=== PATIENT | female | born 1945 | race Caucasian/White ===

== ENCOUNTER → 2016-04-05 | Day surgery (SDC) | payer MEDICARE, BC ==
--- NOTE | 2016-03-31 17:28 | HP ---
PREOPERATIVE HISTORY AND PHYSICAL EXAM: DATE OF SURGERY/ADMISSION: 04/05/16 [facility] DATE OF OFFICE VISIT/ENCOUNTER: 03/31/16 ATTENDING SURGEON: Melany Beavers MD PROCEDURE: Left long finger excision mass, right index finger PIP joint cortisone injections. CHIEF COMPLAINT: Mass, left long finger, right index finger PIP joint pain. HISTORY OF PRESENT ILLNESS: This is a 70-year-old female complaining of a painful mass at the base of her long finger on the left hand. It has been present for approximately 1 year. 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 She reports that it fluctuates in size, but has been persistent in existence. She also has had pain at the PIP joint of her right index finger for a couple of years now and x-rays have showed arthritis at the joint. She has consented to proceed with surgical intervention on the left long finger for excision of the mass and also for a cortisone injection in the right index finger PIP joint. PAST MEDICAL HISTORY: 1. Heart murmur. 2. History of DVT approximately 40 years ago. 3. Hypertension. 4. Asthma. 5. GERD. 6. Diabetes. 7. Depression. 8. History of shingles. PAST SURGICAL HISTORY: 1. Left index finger cyst excision. 2. Bilateral carpal tunnel releases. 3. Left thumb surgery. 4. Trigger finger surgeries. 5. Partial hysterectomy. CURRENT MEDICATIONS: 1. Aspirin 81 mg daily. 2. Atorvastatin calcium 20 mg daily. 3. Flonase 50 mcg p.r.n. 4. Glimepiride 4 mg 1 tab in the morning, half tab at noon, 1 tab in the evening. 5. Januvia 100 mg daily. 6. Klonopin 1 mg one-half to one p.o. b.i.d. p.r.n. 7. Metformin 1000 mg 1 tab b.i.d. 8. Motrin 600 mg 1 p.o. q.8 hours p.r.n. pain. 9. Multivitamin 1 daily. 10. Prilosec 10 mg daily. 11. Tolterodine tartrate 2 mg 1 tab b.i.d. ALLERGIES: 1. ADHESIVES. 2. CELEXA. 3. CODEINE. 4. ERYTHROMYCIN. 5. IVP CONTRAST. 6. LATEX. 7. PERCOCET. 8. PERCODAN. 9. TETRACYCLINE. FAMILY MEDICAL HISTORY: Diabetes, cardiac disease, cancer, and osteoarthritis. SOCIAL HISTORY: The patient is retired. She denies tobacco use, recreational drug use, or alcohol use. REVIEW OF SYSTEMS: General: Negative for fevers, chills, or night sweats. No known anesthesia problems. HEENT: Negative for headache, lightheadedness, or syncopal episodes. Integumentary: Negative for abrasions, lesions, or open wounds. Cardiothoracic: Positive for hypertension. Negative for chest pain, palpitations, or edema. Pulmonary: Positive for asthma. Negative for chronic cough or COPD. GI: Positive for GERD. Negative for nausea, vomiting, diarrhea , or constipation. : Positive for history of kidney stones. Negative for nocturia, urinary frequency, urgency, or history of UTIs. Musculoskeletal: Positive for current complaint. Negative for chronic or intermittent back pain or history of fractures. Neurological: Positive for depression. Negative for paresthesias, numbness, history of seizures, stroke, or epilepsy. Endocrine: Positive for diabetes. Negative for thyroid issues. Hematologic: Positive for history of DVT. Negative for easy bruising, anemia, or excessive bleeding. Infectious Disease: Negative for history of MRSA, hepatitis C, or HIV. PHYSICAL EXAMINATION GENERAL: Well-developed, well-nourished 70-year-old female in no acute distress. VITAL SIGNS: Height 5 feet 4 inches, weight 217 pounds, pulse rate 64, blood pressure 122/74. HEENT: Normocephalic, atraumatic. Pupils are equal, round, and reactive to light and accommodation. Extraocular movements are intact. NECK: Supple. No palpable lymph nodes. Throat is clear. PULMONARY: Lungs are clear to auscultation bilaterally. No wheezes, rales, or rhonchi. CARDIOTHORACIC: Regular rate and rhythm. S1, S2. Murmur detected. No rubs or gallops. No edema. ABDOMEN: Positive bowel sounds. Soft, nontender. NEUROLOGICAL: Alert and oriented x3. Cranial nerves II through XII are intact. Sensation is intact to light touch. MUSCULOSKELETAL: On exam of the left hand, there is a small cystic mass at the MP flexion crease of her left middle finger which is painful. Negative Tinel's sign over the mass. She has tenderness to palpation at the PIP joint of the right index finger and difficulty achieving full flexion secondary to arthritis. Intact neurovascular function in both hands. IMAGING STUDIES: X-rays of the left hand showed diffuse degenerative changes throughout the joints mostly involving PIP joints and DIP joints. IMPRESSION: Left middle finger ganglion cyst, right index finger PIP arthritis. PLAN: The patient is scheduled to undergo a left long finger excision mass and a right index finger PIP joint cortisone injection with Dr. Beavers on 04/05/16. She will return to the office 10 to 14 days postop for followup and suture removal. A prescription for Ultracet was e-scribed to the patient's pharmacy for postoperative pain management. DOLORES NASH [id number]/[facility] #: [id number] MTDPerez
[~2016-04-05] MED LIST: Buffered Lidocaine 1% SYR 3ML* 3 ML/SYR SYRINGE INTRADERM ONE; Bupivacaine 0.5% SDV PF* 30 ML VIAL ONE; Lidocaine 1% INJ* 10 MG/ML 30 ML SDV ONE; Midazolam* 1 MG/ML 2 ML VIAL (2 MG) ONE; Propofol* 10 MG/ML 20 ML BTL IV PUSH ONE; fentaNYL* 50 MCG/ML 2 ML VIAL (100 MCG VIAL) ONE; methylPREDNISolone ACETATE 40* 40 MG/ML 1 ML VIAL ONE
[2016-04-05 09:48] VITALS: BP 137/68
--- NOTE | 2016-04-05 15:31 | OP ---
DATE OF OPERATION: 04/05/16 [facility] DATE OF : 47 SURGEON: Melany Beavers MD ORGANIZATIONAL DEVELOPMENT CONSULTANT: DOLORES Davis ANESTHESIA: Local MAC. PRE-OP DIAGNOSES: Left long finger mass and right index finger PIP arthritis. POST-OP DIAGNOSES: Left long finger mass and right index finger PIP arthritis. OPERATIVE PROCEDURE: Right index finger PIP injection and left long finger mass excision. ESTIMATED BLOOD LOSS: Zero. TOURNIQUET TIME: About 10 minutes. INDICATIONS FOR PROCEDURE: Katherine is a 70-year-old woman who has a painful mass on the MP flexion crease of her left middle finger. She also has PIP arthritis of right index finger. She presents for PIP injection of the right index finger and mass removal from the left middle finger. DESCRIPTION OF PROCEDURE: The patient was brought to the operating room, was given a sedation anesthetic and local infiltration of 10 cc of 1% plain lidocaine in the palm of her left hand. She was then injection of 40 mg of Depo -Medrol, 1 cc of 1% plain lidocaine near the PIP of the right index finger. Skin of the her left hand and forearm were prepped and draped in usual sterile fashion. The hand and forearm were exsanguinated and tourniquet elevated to 250 mmHg. A transverse incision was made at the MP flexion crease of the left middle finger. We dissected bluntly through the subcutaneous tissue down to the flexor tendon sheath. There was a ganglion cyst emanating from the flexor tendon sheath. It was removed with the small portion of the sheath and sent for pathology. The wound was irrigated and skin were reapproximated with 4-0 nylon suture. The wound was dressed with Xeroform, 4x4, Webril, and an ANNALEE wrap. The patient tolerated the procedure well and was brought to the recovery room in good condition. [id number]/[facility] #: [id number] MTDPerez
== END | disposition home or self-care (01) ==
LOC: OREAST 08:02
PROVIDERS: ATTEND Orthopaedic Surgery
DX: M67.442 Ganglion, left hand (principal); E11.9 Type 2 diabetes mellitus without complications; I10 Essential (primary) hypertension; R01.1 Cardiac murmur, unspecified; M19.90 Unspecified osteoarthritis, unspecified site
CPT/HCPCS: 88304; J1030; J2250; J2704; J3010

== ENCOUNTER 2016-04-10 10:57 | Emergency (ER) | payer MEDICARE, BC ==
[2016-04-10 11:31] VITALS: BP 155/86
--- NOTE | 2016-04-10 12:23 | UC ---
Skin Complaint HPI - HPI Summary HPI Summary: pt reports that she had a cortisone injection on 04/05/16, for DJD, reports waking alen morning with redness, swelling, pruritic skin at 2nd right finger PIP joint injection site. Erythema, swelling, tenderness, and small "blisters" in dorsal side of hand at 2nd right finger PIP joint that has spread to wrist and hand.Pt had ganglion cyst removed 1 week ago on left hand, base of third finger. Has history of DJD - History of Current Complaint Chief Complaint: UCSkin Time Seen by Provider: 04/10/16 12:04 Stated Complaint: RASH AND HAND PAIN Hx Obtained From: Patient ?: No Onset/Duration: Gradual Onset, Lasting Days Skin Exposure Onset/Duration: Days Ago Timing: Constant Onset Severity: Mild Current Severity: Moderate Location: Discrete, Hand (Left) Character: Swelling, Pruritus, Pain, Redness, Painful Aggravating: Touch Alleviating: Other - has not tried anything Associated Signs & Symptoms: Positive: Tenderness - Allergy/Home Medications Allergies/Adverse Reactions: Allergies Allergy/AdvReac Type Severity Reaction Status Date / Time Erythromycin Allergy Severe STOMACH Verified 03/30/16 10:45 ACHE Fluoxetine Allergy Severe HEART Verified 03/30/16 10:45 PALPITATIONS, AGITATION Tetracycline Allergy Severe YEAST Verified 03/30/16 10:45 INFECTION Cortisone Allergy Intermediate Redness, Verified 04/10/16 11:24 swelling Tramadol Allergy Unknown Unknown Verified 04/10/16 11:24 Reaction Details Aspirin [From Percodan] Allergy Headache Verified 03/30/16 10:43 Citalopram [From Celexa] Allergy Palpitation Verified 03/30/16 10:43 s Codeine Allergy Nausea And Verified 03/30/16 10:43 Vomiting Latex Allergy Rash And Verified 03/30/16 10:43 Itching Oxycodone [From Percocet] Allergy Headache Verified 03/30/16 10:43 UNADUR Allergy Severe SEVERE Uncoded 03/30/16 10:45 HEART PALPITATIONS CONTRAST DYE Allergy Hives Uncoded 03/30/16 10:43 Review of Systems Constitutional: Negative Skin: Rash Eyes: Negative ENT: Negative Respiratory: Negative Cardiovascular: Negative Gastrointestinal: Negative Genitourinary: Negative Motor: Decreased ROM - right 2nd finger Neurovascular: Negative Musculoskeletal: Arthralgia, Decreased ROM - right 2nd finger, Edema - right 2nd finger and hand, Myalgia, Other: - left hnad with post bandage from ganglion cyst removal intact. Neurological: Negative, Weakness Psychological: Negative All Other Systems Reviewed And Are Negative: Yes PMH/Surg Hx/FS Hx/Imm Hx Endocrine History Of: Reports: Diabetes - TYPE 2 Cardiovascular History Of: Reports: Hypertension - CONTROL WITH MEDS Denies: Pacemaker/ICD Respiratory History Of: Reports: Asthma - HX OF WITH A COLD, Bronchitis - WITH A COLD GI/ History Of: Reports: Kidney Stones - HX OF - ? PASSED Psychological History Of: Reports: Anxiety - CONTROL WITH MEDICATION, Depression - Surgical History Surgical History: Yes Surgery Procedure, Year, and Place: 1980 PARTIAL HYSTERECTOMY, [facility]. 1999 BILATERAL CARPAL TUNNEL RELEASE, [facility]. 2003 LEFT INDEX GANGLION TENDON SHEATH EXCISION, [facility]. 2010 LEFT THUMB SURGERY, [facility]. Left third finger ganglion cyst - Family History Known Family History: Positive: Other - denies FMH of DJD - Social History Alcohol Use: None Substance Use Type: None Smoking Status (MU): Never Smoked Tobacco Have You Smoked in the Last Year: No Physical Exam Triage Information Reviewed: Yes Appearance: Well-Appearing Vital Signs: Initial Vital Signs Temp 97.8 F 04/10/16 11:24 Pulse 82 04/10/16 11:24 Resp 16 04/10/16 11:24 BP 155/86 04/10/16 11:24 Pulse Ox 99 04/10/16 11:24 Vital Signs Reviewed: Yes ENT Exam: Normal Neck exam: Normal Respiratory Exam: Normal Cardiovascular Exam: Normal Musculoskeletal: Positive: Strength Limited @ - right hand, left hand s/p ganglion cyst removal with post op bandages intact., ROM Limited @, Edema @ - right hand and 2nd finger Neurological Exam: Normal Psychological Exam: Normal Skin Exam: Other - right dorsal side 2nd hand/finger, erythema swelling tenderness Course/Dx - Course Course Of Treatment: pt was advised to follwo up with Dr. Beavers and to take OTC antihistamine - Differential Diagnoses - Skin Complaint Differential Diagnoses: Cellulitis, Local Allergic Reaction - Diagnoses Provider Diagnoses: cellulitis. localized allergic reaction Discharge - Discharge Plan Condition: Stable Disposition: HOME Prescriptions: Cephalexin CAP* [Keflex 500 CAP*] 500 mg PO Q12H #10 cap Patient Education Materials: Cellulitis (ED), Dermatitis (ED) Referrals: Christopher Lane MD [Primary Care Provider] - Additional Instructions: Please use Benadryl OTC Q6 hours PRN for pruritis
== END 2016-04-10 12:31 | disposition home or self-care (01) ==
LOC: UCEAST 10:57
DX: L03.113 Cellulitis of right upper limb (principal); I10 Essential (primary) hypertension; F41.9 Anxiety disorder, unspecified; Z88.1 Allergy status to other antibiotic agents; Z88.5 Allergy status to narcotic agent; Z88.6 Allergy status to analgesic agent; Z88.8 Allergy status to other drugs, medicaments and biological substances; Z91.041 Radiographic dye allergy status
CPT/HCPCS: 99202; G0463

== ENCOUNTER → 2016-04-19 | Day surgery (SDC) | payer MEDICARE, BC ==
--- NOTE | 2016-04-15 07:31 | HP ---
PREOPERATIVE HISTORY AND PHYSICAL: DATE OF ADMISSION/SURGERY: 04/26/16 DATE OF OFFICE VISIT/ENCOUNTER: 04/13/16 ATTENDING SURGEON: Melany Beavers MD PROCEDURE: Right thumb carpometacarpal arthroplasty. CHIEF COMPLAINT: Base of right thumb pain. HISTORY OF PRESENT ILLNESS: This is a 70-year-old female who complains of pain at the base of her r ight thumb for over a year now, she feels like it is progressively getting worse. 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 She has had x-rays of the thumb which sh ow significant degenerative changes of the carpometacarpal joint. She is interested in pursuing kyleigh gical intervention for this problem at this time. She has undergone a left thumb CMC arthroplasty a nd did well with that. She presents today for a right thumb CMC arthroplasty. PAST MEDICAL HISTORY: 1. Heart murmur. 2. History of DVT approximately 40 years ago. 3. Hypertension. 4. Asthma. 5. GERD. 6. Diabetes. 7. Depression. 8. History of shingles. PAST SURGICAL HISTORY: 1. Excision, mass, left long finger. 2. Excision, mass, left index finger. 3. Bilateral carpal tunnel releases. 4. Left thumb surgery. 5. Trigger finger release surgeries. 6. Partial hysterectomy. CURRENT MEDICATIONS: 1. Aspirin 81 mg daily. 2. Atorvastatin calcium 20 mg daily. 3. Flonase 50 mcg p.r.n. 4. Glimepiride 4 mg 1 tab in the morning, half tab at noon, 1 tab in the evening. 5. Januvia 100 mg daily. 6. Klonopin 1 mg one-half to one p.o. b.i.d. p.r.n. 7. Metformin 1000 mg 1 tab b.i.d. 8. Motrin 600 mg 1 tab q.8 hours p.r.n. pain. 9. Multivitamin daily. 10. Prilosec 10 mg daily. 11. Tolterodine tartrate 2 mg 1 tab b.i.d. ALLERGIES: ADHESIVES, CELEXA, CODEINE, ERYTHROMYCIN, IVP CONTRAST, LATEX, PERCOCET, PERCODAN, TETRA CYCLINE. FAMILY MEDICAL HISTORY: Diabetes, cardiac disease, cancer, and osteoarthritis. SOCIAL HISTORY: The patient is retired. She denies tobacco use. She denies recreational drug use. She denies alcohol use. REVIEW OF SYSTEMS: General: Negative for fevers, chills, or night sweats. No known anesthesia pro blems. HEENT: Negative for headache, lightheadedness, or syncopal episodes. Integumentary: Negat drake for abrasions, lesions, or open wounds. Cardiothoracic: Positive for hypertension. Negative f or chest pain, palpitations, or edema. Pulmonary: Positive for asthma. Negative for chronic cough or COPD. GI: Positive for GERD. Negative for nausea, vomiting, diarrhea, or constipation. : Positive for kidney stones. Negative for nocturia, urinary frequency, urgency, or history of UTIs. Musculoskeletal: Positive for current complaint. Negative for chronic or intermittent back pain o r history of fractures. Neurological: Positive for depression. Negative for paresthesias, numbness , history of seizures, stroke, or epilepsy. Endocrine: Positive for diabetes. Negative for thyroid issues. Hematologic: Positive for history of DVT. Negative for easy bruising, anemia, or excessi ve bleeding. Infectious Disease: Negative for history of MRSA, hepatitis C, or HIV. PHYSICAL EXAMINATION GENERAL: Well-developed, well-nourished, 70-year-old female in no acute distress. VITAL SIGNS: Height 5 feet 4 inches, weight 217 pounds, pulse rate 64, blood pressure 122/74. HEENT: Normocephalic, atraumatic. Pupils are equal, round, and reactive to light and accommodation . Extraocular movements are intact. NECK: Supple. No palpable lymph nodes. Throat is clear. PULMONARY: Lungs are clear to auscultation bilaterally. No wheezes, rales, or rhonchi. CARDIOTHORACIC: Regular rate and rhythm. S1, S2. Slight murmur detected. No rubs or gallops. No edema. ABDOMEN: Positive bowel sounds. Soft, nontender. NEUROLOGICAL: Alert and oriented x3. Cranial nerves II through XII are intact. Sensation is intact to light touch. MUSCULOSKELETAL: On exam of the right hand and thumb, there is tenderness to palpation at the carpo metacarpal joint. The patient has increased pain with full opposition and abduction. She has a pos itive grind test. Neurovascular function is intact. DIAGNOSTIC STUDIES: Imaging studies: X-rays of the right thumb show severe degenerative arthritis of the CMC joint. PLAN: The patient is scheduled to undergo a right thumb CMC arthroplasty with Dr. Beavers on 04/26/16 . She will return to the office 10 to 14 days postop for followup and suture removal. Mead will b e prescribed to the patient for postoperative pain management and that will be sent to her pharmacy the day of surgery. DOLORES NASH [id number]/[facility] #: [id number]
[~2016-04-19] MED LIST changes: +Clindamycin 900 MG IVPREMIX(* 900 MG/50 ML SDV IV ONE; +Lidocaine 0.5%* 50 ML SDV ONE; -Lidocaine 1% INJ* 10 MG/ML 30 ML SDV ONE; +Metoclopramide IV* 5 MG/ML 2 ML VIAL IV SLOW PU ONE; +Metoclopramide IV* 5 MG/ML 2 ML VIAL ONE; -Propofol* 10 MG/ML 20 ML BTL IV PUSH ONE; +Sodium Citrate/Citric Acid* 15 ML UDC ONE; +Sodium Citrate/Citric Acid* 15 ML UDC PO ONE; -methylPREDNISolone ACETATE 40* 40 MG/ML 1 ML VIAL ONE
[2016-04-19 13:30] VITALS: BP 131/79
--- NOTE | 2016-04-20 01:31 | OP ---
DATE OF OPERATION: 04/19/16 [facility] DATE OF : 47 SURGEON: Melany Beavers MD. LABOR RELATIONS REPRESENTATIVE: DOLORES Davis. ANESTHESIOLOGIST: Melvin Angeles DO ANESTHESIA: IV regional. PRE-OP DIAGNOSIS: Right thumb carpal metacarpal arthritis. POST-OP DIAGNOSES: Right thumb carpal metacarpal arthritis. OPERATIVE PROCEDURE: Right thumb carpal metacarpal arthroplasty. ESTIMATED BLOOD LOSS: Zero. TOURNIQUET TIME: About 35 minutes. INDICATIONS FOR PROCEDURE: Katherine is a 70-year-old woman with pain at the base of her right thumb. She has failed conservative treatment and presents for CMC arthroplasty on the right. DESCRIPTION OF PROCEDURE: The patient was brought to the operating room, was given a sedation anesthetic and an IV regional anesthetic with tourniquet around her right upper arm. The skin of her right upper extremity was prepped and draped in the usual sterile fashion. An S-shaped incision was made centered at the thumb CMC joint on the right. We dissected bluntly through the subcutaneous tissue. Branches of the radial sensory nerves were located and then retracted by the surgical processor, Gifty Crawford. The radial artery was carefully dissected out and also retracted, as were the first compartment extensor tendons. A distally based U-shaped flap was then created off the CMC joint capsule and subperiosteally dissected off of the trapezium. The trapezium was then removed in its entirety after sectioning with an osteotome. The wound was copiously irrigated with saline. The CMC joint capsule was secured to the FCR tendon in the base of the wound with a 4-0 nylon suture. This produced nice abduction of the metacarpal. The remainder of the CMC joint capsule was closed with 4-0 nylon suture and the skin edges were reapproximated with 4-0 nylon suture. The wound was dressed with Xeroform, 4x4, Webril and a thumb spica splint with the metacarpal abducted. The patient tolerated the procedure well and was brought to the recovery room in good condition. [id number]/[facility] #: [id number] MTDD
== END | disposition home or self-care (01) ==
LOC: OREAST 10:13
PROVIDERS: ATTEND Orthopaedic Surgery
DX: M18.11 Unilateral primary osteoarthritis of first carpometacarpal joint, right hand (principal); I10 Essential (primary) hypertension; J45.909 Unspecified asthma, uncomplicated; E11.9 Type 2 diabetes mellitus without complications
CPT/HCPCS: 88304; 88311; A9270-GY; J2250; J2765; J3010

== ENCOUNTER 2017-01-23 10:14 | Observation (INO) | payer MEDICARE, BC ==
[2017-01-23] MEDS ORDERED: NS 0.9% 1000 ML* 1,000 ML IV ONE (11:34)
[2017-01-23] MEDS ORDERED: Ondansetron INJ* 2 MG/ML VIAL IV ONE (11:34)
[2017-01-23] MEDS ORDERED: Morphine INJ* 4 MG/ML 1 ML CARPUJECT IV ONE (11:34)
--- NOTE | 2017-01-23 12:07 | RAD ---
INDICATION: Upper abdominal pain. COMPARISON: Comparison is made with a prior chest x-ray study from June 17, 2004. TECHNIQUE: Dual-energy PA and lateral views of the chest were obtained. FINDINGS: The heart is within normal limits in size. Mediastinal and hilar contours appear within normal limits. The lungs are clear. No pleural effusion is present. No free intraperitoneal air is seen. IMPRESSION: NO EVIDENCE FOR ACTIVE CARDIOPULMONARY DISEASE.
[2017-01-23 12:36] LABS: Hematocrit 33 % (35-47); Hemoglobin 11.2 g/dl (12.0-16.0); Mean Corpuscular HGB Conc 34 g/dl (31-36); Mean Corpuscular Hemoglobin 29 pg (27-31); Mean Corpuscular Volume 86 fL (80-97); Mean Platelet Volume 8 um3 (7.4-10.4); Red Blood Count 3.88 10^6/ul (4.0-5.4); Red Cell Distribution Width 16 % (10.5-15); White Blood Count 5.9 10^3/ul (3.5-10.8)
[2017-01-23 12:45] LABS: BUN/Creatinine Ratio 19.8 (8-20); C Reactive Protein 2.1 mg/L (< 5.00); Calcium 8.6 mg/dL (8.6-10.3); EGFR African American 73.9 (>60); EGFR Non-African American 57.5 (>60); Globulin 3.7 g/dL (2-4); Potassium 4.2 mmol/L (3.5-5.0); Total Bilirubin 0.6 mg/dL (0.2-1.0); Total Protein 7.7 g/dL (6.4-8.9)
[2017-01-23 12:47] LABS: Troponin I 0.04 ng/mL (<0.04)
--- NOTE | 2017-01-23 12:49 | RAD ---
CLINICAL HISTORY: Right upper quadrant pain. Relevant surgical history includes "partial hysterectomy". COMPARISON: None TECHNIQUE: Noncontrast CT examination of the abdomen and pelvis from the lung bases through the initial tuberosities. FINDINGS: VISUALIZED LUNG BASES: The visualized lung bases are grossly clear. There is no pleural effusion. ABDOMEN AND PELVIS: Evaluation of the solid organs and vasculature is limited without intravenous contrast. The liver, spleen, pancreas and adrenal glands are grossly normal in appearance. The gallbladder is normal. The kidneys are normal in appearance without focal mass, calcification or signs of hydronephrosis. Evaluation of the gastrointestinal tract is limited without oral contrast. The small and large bowel are not distended. The normal and diminutive appendix is likely identified at the right lower quadrant (coronal image 44). There is no gross retroperitoneal or mesenteric lymphadenopathy. Despite a reported "partial hysterectomy and "the uterus appears to be present. The mildly calcified abdominal aorta and iliac arteries are normal in course and diameter. Degenerative changes include multilevel loss of intervertebral disc height involving the lower thoracic and lumbar spine.There are no sinister bone lesions. IMPRESSION: 1. No definite inflammatory change or signs of obstruction involving the gastrointestinal tract. 2. Likely normal appendix. 3. No renal calculi or signs of urinary obstruction. 4. Chronic and degenerative changes described in the body the report.
--- NOTE | 2017-01-23 15:33 | ED ---
Markos Voss Nilda, scribed for Nikolas Gooden MD on 01/23/17 at 1134 . Abdominal Pain/Female - HPI Summary HPI Summary: This patient is a 71 year old F presenting to [facility] accompanied by with a chief complaint of constant RUQ pain (pressure) that has been progressively worsening for the past 3 weeks. She states it feels like it wants to fall out. PCP recommended patient visit the ED. The patient rates the pain 8/10 in severity. Symptoms aggravated by food and sitting. Symptoms alleviated by supporting abdomen. Patient reports RUQ swelling, but denies dyspnea, N/V/D, melena, and abdominal distention. No PSHx for GI. - History of Current Complaint Chief Complaint: EDAbdPain Stated Complaint: ABD PAIN Time Seen by Provider: 01/23/17 11:18 Hx Obtained From: Patient Onset/Duration: Gradual Onset, Lasting Weeks - 3 weeks Timing: Constant Severity Currently: Severe Pain Intensity: 8 Pain Scale Used: 0-10 Numeric Location: Discrete At: RUQ Radiates: No Character: Other: - pressure Aggravating Factor(s): Food, Other: - bending and sitting Alleviating Factor(s): Other: - supporting abdomen Associated Signs and Symptoms: Positive: Other: - RUQ swelling. Patient denies dyspnea, N/V/D, melena, and abdominal distention. Allergies/Adverse Reactions: Allergies Allergy/AdvReac Type Severity Reaction Status Date / Time Citalopram [From Celexa] Allergy Severe Palpitation Verified 01/23/17 10:49 s Codeine Allergy Severe Nausea And Verified 01/23/17 10:49 Vomiting Erythromycin Allergy Severe STOMACH Verified 01/23/17 10:49 ACHE Fluoxetine Allergy Severe HEART Verified 01/23/17 10:49 PALPITATIONS, AGITATION Latex Allergy Severe Rash And Verified 01/23/17 10:49 Itching Tetracycline Allergy Severe YEAST Verified 01/23/17 10:49 INFECTION Cortisone Allergy Intermediate Redness, Verified 01/23/17 10:49 swelling Tramadol Allergy Unknown Unknown Verified 01/23/17 10:49 Reaction Details Aspirin [From Percodan] Allergy Headache Verified 01/23/17 10:49 Methylprednisolone Allergy Rash And Verified 01/23/17 10:49 [From Depo-Medrol] Itching Oxycodone [From Percocet] AdvReac Intermediate Headache Verified 01/23/17 10:49 CONTRAST DYE Allergy Severe Hives Uncoded 01/23/17 10:49 Trulicity Allergy Severe Nausea And Uncoded 01/23/17 10:49 Vomiting UNADUR Allergy Severe SEVERE Uncoded 01/23/17 10:49 HEART PALPITATIONS Home Medications: Home Medications Albuterol Sulfate [Proventil Hfa] 2 puff INH QID PRN 01/23/17 [History Confirmed 01/23/17] Aspirin EC Low Dose* [Ecotrin EC Low Dose 81 MG*] 81 mg PO BEDTIME 01/23/17 [ History Confirmed 01/23/17] Insulin GLARGINE(*) [Lantus(*)] 0 - 65 units SUBCUT QPM 01/23/17 [History Confirmed 01/23/17] Lisinopril TAB* [Prinivil TAB*] 5 mg PO DAILY 01/23/17 [History Confirmed ] Omeprazole CAP* [Prilosec CAP* 20 MG] 10 mg PO QAM 01/23/17 [History Confirmed 01/23/17] Tolterodine (NF) [Detrol (NF)] 2 mg PO BID 01/23/17 [History Confirmed 01/23/17] metFORMIN* [Glucophage 1000 MG TAB *] 1,000 mg PO BID 01/23/17 [History Confirmed 01/23/17] PMH/Surg Hx/FS Hx/Imm Hx Endocrine/Hematology History: Reports: Hx Diabetes - TYPE 2, Hx Anemia - 2005 - 3 UNITS OF BLOOD, RELATED TO MOTRIN INTAKE Cardiovascular History: Reports: Hx Hypertension - CONTROL WITH MEDS, Other Cardiovascular Problems/Disorders - Heart Murmur Denies: Hx Pacemaker/ICD Respiratory History: Reports: Hx Asthma - HX OF WITH A COLD GI History: Reports: Hx Gastroesophageal Reflux Disease - CONTROL WITH MEDS History: Reports: Hx Kidney Stones - HX OF - ? PASSED Musculoskeletal History: Reports: Hx Arthritis - BILATERAL HANDS,, Hx Bursitis - RIGHT ELBOW, Hx Tendonitis - RIGHT shoulder and ELBOW Sensory History: Reports: Hx Cataracts - BILATERAL, Hx Contacts or Glasses - GLASSES Denies: Hx Hearing Aid Opthamlomology History: Reports: Hx Cataracts - BILATERAL, Hx Contacts or Glasses - GLASSES Psychiatric History: Reports: Hx Anxiety - CONTROL WITH MEDICATION, Hx Depression, Hx Panic Disorder - ORDERED MEDS - Surgical History Surgery Procedure, Year, and Place: 1981 PARTIAL HYSTERECTOMY, [facility]. 2000 BILATERAL CARPAL TUNNEL RELEASE, [facility]. 2004 LEFT INDEX GANGLION TENDON SHEATH EXCISION, [facility]. 2010 LEFT THUMB SURGERY, [facility]. Left third finger ganglion cyst 2017 Hx Anesthesia Reactions: No Infectious Disease History: No Infectious Disease History: Denies: Traveled Outside the [place] in Last 30 Days - Family History Known Family History: Positive: Hypertension, Diabetes, Other - Cancer; denies FMH of DJD - Social History Occupation: Retired Lives: With Family Alcohol Use: None Substance Use Type: Reports: None Smoking Status (MU): Never Smoked Tobacco Have You Smoked in the Last Year: No Review of Systems Positive: Other - negative dyspnea Positive: Abdominal Pain - RUQ pressure, Other - RUQ swelling; negative melena, abd distention. Negative: Vomiting, Diarrhea, Nausea All Other Systems Reviewed And Are Negative: Yes Physical Exam Triage Information Reviewed: Yes Vital Signs On Initial Exam: Initial Vitals Temp Pulse Resp BP Pulse Ox 98.2 F 88 20 130/68 97 01/23/17 10:22 01/23/17 10:22 01/23/17 10:22 01/23/17 10:22 01/23/17 10:22 Vital Signs Reviewed: Yes Appearance: Positive: Well-Appearing, No Pain Distress Skin: Positive: Skin Color Reflects Adequate Perfusion Head/Face: Positive: Normal Head/Face Inspection Eyes: Positive: EOMI ENT: Positive: Normal ENT inspection Respiratory/Lung Sounds: Positive: Clear to Auscultation, Breath Sounds Present Cardiovascular: Positive: RRR Abdomen Description: Positive: Other: - right upper abdomen is distended compare to the left side. she has some tenderness. Musculoskeletal: Positive: Strength/ROM Intact Neurological: Positive: Sensory/Motor Intact, Alert, Oriented to Person Place, Time, CN Intact II-III Psychiatric: Positive: Normal - Tolu Coma Scale Best Eye Response: 4 - Spontaneous Best Motor Response: 6 - Obeys Commands Best Verbal Response: 5 - Oriented Coma Scale Total: 15 Diagnostics - Vital Signs Vital Signs Temp Pulse Resp BP Pulse Ox 01/23/17 10:34 98 96 01/23/17 10:33 109/60 01/23/17 10:22 98.2 F 88 20 130/68 97 - Laboratory Result Diagrams: 01/23/17 12:10 01/23/17 12:10 Lab Statement: Any lab studies that have been ordered have been reviewed, and results considered in the medical decision making process. - Radiology CXR Radiology Interpretation Completed By: Radiologist - CXR, per radiologist, reveals NAD. ED physician has reviewed this radiology report and agrees. - CT Abd/Pel CT Interpretation Completed By: Radiologist - Abd/Pel CT, per radiologist, reveals no definite inflammatory change or signs of obstruction involving the gastrointestinal tract. Likely normal appendix. No renal calculi or signs of urinary obstruction. Chronic and degenerative changes described in the body of the report. ED physician has reviewed this radiology report and agrees. - EKG 1202 Cardiac Rate: NL EKG Rhythm: Sinus Rhythm - 81 bpm EKG Interpretation: nl AK, nl QSR, No STEMI, + LVH 1406 Cardiac Rate: NL EKG Rhythm: Sinus Rhythm - 75 bpm EKG Interpretation: No STEMI Abdominal Pain Fem Course/Dx - Course Course Of Treatment: This patient is a 71 year old F presenting to [facility] accompanied by with a chief complaint of constant RUQ pain (pressure) that has been progressively worsening for the past 3 weeks. She states it feels like it wants to fall out. PCP recommended patient visit the ED. The patient rates the pain 8/10 in severity. Symptoms aggravated by food and sitting. Symptoms alleviated by supporting abdomen. Patient reports RUQ swelling , but denies dyspnea, N/V/D, melena, and abdominal distention. No PSHx for GI. Trop 0.04. An EKG [1202] reveals NSR, 81 bpm, nl AK, nl QSR, No STEMI, + LVH. A second EKG [1406] reveals NSR, 75 bpm, No STEMI. CXR, per radiologist, reveals NAD. ED physician has reviewed this radiology report and agrees. Abd/ Pel CT, per radiologist, reveals no definite inflammatory change or signs of obstruction involving the gastrointestinal tract. Likely normal appendix. No renal calculi or signs of urinary obstruction. Chronic and degenerative changes described in the body of the report. ED physician has reviewed this radiology report and agrees. [1510] Dr. Hernandez (hospitalist) agrees to admit patient. Patient is stable and will be admitted with a Dx of intractable RUQ pain. - Diagnoses Provider Diagnoses: Intractable right upper quadrant abdominal pain - Provider Notifications Discussed Care Of Patient With: Cheryl Hernandez - hospitalist Time Discussed With Above Provider: 15:10 Instructed by Provider To: Admit As Inpatient Discharge - Discharge Plan Condition: Stable Disposition: ADMITTED TO [facility] Referrals: Christopher Lane MD [Primary Care Provider] - The documentation as recorded by the Markos azevedo Nilda accurately reflects the service I personally performed and the decisions made by me, Nikolas Gooden MD.
[2017-01-23] MEDS ORDERED: Acetaminophen TAB* 325 MG PO PRN (16:01)
[2017-01-23] MEDS ORDERED: Morphine INJ* 2 MG/ML 1 ML SYRINGE (TWO MG - NEW SYRINGE VERSION) IV PRN (16:01)
[2017-01-23] MEDS ORDERED: Fluticasone NASAL SPRAY 50MCG* 16 gm SPRAY BTL BOTH NARES PRN (16:05)
[2017-01-23] MEDS ORDERED: Dextrose 50% Syringe 50 ML* 25 GM/50 ML SYRINGE IV PUSH PRN (16:06)
[2017-01-23] MEDS ORDERED: NS 0.9% 1000 ML* 1,000 ML IV SCH (16:15)
[2017-01-23] MEDS: Insulin LISPRO* 1 UNITS UNIT SUBCUT SCH ×2 (16:49→20:20)
[2017-01-23 19:25] LABS: Urine Bilirubin Negative (Negative); Urine Glucose Negative (Negative); Urine Nitrite Negative (Negative)
--- NOTE | 2017-01-23 19:49 | RAD ---
Indication: RIGHT upper quadrant pain. Comparison: January 23, 2017 CT. Technique: RIGHT upper quadrant ultrasound. Report: Appropriate direction flow documented in the portal and hepatic veins. 14.4 cm liver is increased in echogenicity. Negative for focal hepatic lesions. Negative for intrahepatic biliary dilatation. 3.6 mm common bile duct. Adequately distended gallbladder with normal 2.3 mm wall is without pathologic finding. Negative for sonographic Dos Santos's sign. The pancreatic tail is partially obscured due to bowel gas with the visualized pancreas unremarkable. Negative for ascites. 10.8 cm RIGHT kidney is unremarkable. IMPRESSION: 1. Fatty infiltration of the liver. 2. Negative for gallbladder pathology.
[2017-01-23] MEDS: Atorvastatin* 20 MG TAB PO SCH (20:18)
[2017-01-23] MEDS: Aspirin EC Low Dose* 81 MG TAB.EC PO SCH (20:18)
[2017-01-23] MEDS ORDERED: Ondansetron INJ* 2 MG/ML VIAL IV PRN (20:26)
--- NOTE | 2017-01-23 20:50 | HP ---
CC: Dr. Lane; Dr. Waters * HISTORY AND PHYSICAL: DATE OF ADMISSION: 01/23/17 PRIMARY CARE PROVIDER: Dr. Lane. CHIEF COMPLAINT: Abdominal pain. HISTORY OF PRESENT ILLNESS: Katherine Torres is a 71-year-old female with a history of obesity, diabetes type 2, heart murmur who presented to the hospital complaining of over 2 weeks of right upper quadrant abdominal pain. The pain is worse when she eats, localized in the right upper quadrant. She also describes the pain as constant but worsening when she eats. She stated that she has not been eating well for the past 2 weeks and she lost approximately 5 pounds. She had a right upper quadrant ultrasound at [facility] and as well as lab work which was unremarkable as per the patient. Workup at [facility] here includes CT of the abdomen and pelvis that was unremarkable, gross lab work that was also unremarkable apart from that her troponin was 0.04. The patient denies any chest pain or shortness of breath. She is going to be placed on overnight observation with diagnosis of right upper quadrant abdominal pain, rule out a gallbladder disease. PAST MEDICAL HISTORY: 1. Heart murmur. The patient does not know which valve is affected. She does not remember ever seeing a meat pumper. 2. History of DVT over 40 years ago. 3. Hypertension. 4. Asthma. 5. Gastroesophageal reflux disease. 6. History of diabetes type 2. 7. Depression. 8. History of 3 episodes of shingles, the most recent one was 2 months ago and localized in the left axillary region. PAST SURGICAL HISTORY: 1. History of bilateral carpal tunnel release and thumb surgery in the past as well as trigger finger release surgeries in the past. 2. History of partial hysterectomy. MEDICATIONS: At home include: 1. Omeprazole 10 mg daily. 2. Insulin Lantus on a daily basis. 3. Albuterol inhaler up to 4 times a day. 4. Aspirin 81 mg daily. 5. Lisinopril 5 mg daily. 6. Flonase 1 spray both nostrils daily p.r.n. 7. Lipitor 20 mg daily. 8. Metformin 1000 mg b.i.d. 9. Detrol 2 mg b.i.d. FAMILY HISTORY: Positive for mother who at the age of 86, had a history of uterine cancer at the age of 75. Father with history of COPD at the age of 90. There is history of diabetes in the father's side. SOCIAL HISTORY: The patient denies any tobacco, alcohol, or drug use. She is retired and she lives with her who is her surrogate. Her 's name is Yunior Torres. PHYSICAL EXAMINATION GENERAL: The patient is a very pleasant 71-year-old female, who is in no acute distress. Alert, awake, and oriented x3. VITAL SIGNS: Blood pressure of 135/71, heart rate of 68 and regular, respiratory rate 15, oxygen saturation 97% on room air, temperature of 98.2. HEENT: Head atraumatic and normocephalic. Eyes: Pupils equal and reactive to light and accommodation. Oropharynx clear. Mucosa moist. NECK: Supple. No JVD. No bruits bilaterally. RESPIRATORY: Clear to auscultation bilaterally. CARDIOVASCULAR: Regular rate and rhythm with significant 4/6 systolic ejection murmur on auscultation of the entire precordium. ABDOMEN: Soft, tender in the right upper quadrant with point tenderness in the right hypochondrial area as well as the epigastric area with no rebound, no guarding. Bowel sounds present in all 4 quadrants. EXTREMITIES: There is no edema. Pulses +2 bilaterally. There is no clubbing or cyanosis. NEURO EVALUATION: Speech clear. Cranial nerves II through XII grossly intact. Motor strength is 5/5 bilaterally. SKIN: The patient has shingles lesions covered with eschar in the left axillary region. No other abnormalities noted. DIAGNOSTIC STUDIES/LAB DATA: Sodium of 136, potassium 4.2, chloride 103, carbon dioxide 25, BUN 19, creatinine 0.96. Liver function tests were unremarkable apart from mild elevation of alkaline phosphatase of 107. Troponin of 0.04 x2. Lipase of 29. White blood cell count of 5.9, hemoglobin of 11.2, hematocrit of 33, and platelets of 267,000. CT of the abdomen and pelvis, impression: "No definite inflammatory change or signs of obstruction involving the gastrointestinal tract. Likely normal appendix. No renal calculi or signs of urinary obstruction. Chronic degenerative changes." Portable chest x-ray, impression: "No evidence for active cardiopulmonary disease." The patient's EKG showed normal sinus rhythm with a heart rate of 75 beats per minute with nonspecific ST changes in V5 and V6. Comparing with an EKG from 2003, the patient's T-waves in leads V5 and V6 were definitely positive at times , but may be positional though. ASSESSMENT AND PLAN: 1. Right upper quadrant abdominal pain, worse with eating. At this point, gallbladder disease is a possibility. The patient is going to be placed on overnight observation and I will ask Dr. Waters to consult the patient from surgical standpoint. HIDA scan is going to be obtained. 2. In regards to the patient's elevated troponin, the patient denies chest pain. She has clear point tenderness in the right upper quadrant and I do not believe that this tenderness has anything to do with the possibility of cardiac issues. 3. Her EKG is slightly changed comparing to the one from 13 years ago. Her troponins are "flat" at 0.04. I will obtain another troponin in the morning. I will also place the patient on telemetry monitored bed and obtain a transthoracic echocardiogram to visualize the heart further and also evaluate the murmur. 4. For DVT prophylaxis, the patient is going to be placed on heparin subcutaneously. 5. For her history of asthma, her nasal steroids are going to be continued. 6. For her dyslipidemia, her Lipitor is going to be continued. 7. In regards to the patient's shingles, they are mostly healed. No precautions needed. 8. For diabetes, the patient is going to be placed on insulin sliding scale. 9. The patient's code status is full. TIME SPENT: Approximately 55 minutes were spent on admission of this patient, more than half the time was spent [id number] with the patient during the interview and physical exam. [id number]/[facility] #: [id number] DIANE
[2017-01-24 05:10] LABS: Hematocrit 30 % (35-47); Hemoglobin 10.2 g/dl (12.0-16.0); Mean Corpuscular HGB Conc 34 g/dl (31-36); Mean Corpuscular Hemoglobin 29 pg (27-31); Mean Corpuscular Volume 86 fL (80-97); Mean Platelet Volume 7 um3 (7.4-10.4); Red Blood Count 3.52 10^6/ul (4.0-5.4); Red Cell Distribution Width 16 % (10.5-15); White Blood Count 5.6 10^3/ul (3.5-10.8)
[2017-01-24 05:29] LABS: Albumin 3.5 g/dL (3.2-5.2); BUN/Creatinine Ratio 15.8 (8-20); Calcium 7.9 mg/dL (8.6-10.3); EGFR African American 69.7 (>60); EGFR Non-African American 54.2 (>60); Globulin 3.2 g/dL (2-4); Potassium 4.2 mmol/L (3.5-5.0); Total Bilirubin 0.6 mg/dL (0.2-1.0); Total Protein 6.7 g/dL (6.4-8.9)
[2017-01-24 05:34] LABS: Troponin I 0.04 ng/mL (<0.04)
[2017-01-24] MEDS: Insulin LISPRO* 1 UNITS UNIT SUBCUT SCH ×4 (07:21→20:24)
--- NOTE | 2017-01-24 08:51 | RAD ---
INDICATION: Post prandial abdominal pain. Comparison: Comparison is made with a prior right upper quadrant ultrasound from January 23, 2017. Technique: The patient was given an intravenous injection of 6.3 mCi of technetium 99m Choletec intravenously and multiple images of the right upper quadrant were obtained. FINDINGS: The images demonstrate normal homogeneous uptake of radiopharmaceutical in the liver. No significant focal abnormality is seen. There is prompt visualization of the extrahepatic ducts. There is slight delayed visualization of the gallbladder which is first seen at approximately 20 minutes and then subsequently opacifies slowly. There is normal visualization of the small bowel. IMPRESSION: SLIGHT DELAYED OPACIFICATION OF THE GALLBLADDER, OTHERWISE UNREMARKABLE STUDY.
[2017-01-24] MEDS ORDERED: Lisinopril TAB* 5 MG PO SCH (09:00)
[2017-01-24] MEDS ORDERED: Omeprazole CAP* 20 MG PO SCH ×2 (09:00)
--- NOTE | 2017-01-24 11:03 | ECHO ---
Patient: CONG AYALA [facility] Rec#: [id number] : 1945 Date: 01/24/2017 Age: 71y Height: 162.56 cm / 64.0 in Weight: 96.16 kg / 211.9 lbs Sex: F BSA: 2.01 Room#: 431 Admit Date#: 01/23/2017 Type: Inpatient Referring: Cheryl Hernandez MD Reading: Clinton Pascual MD Unarmed Security Guard: Meli GerardoADRIAN CC: Christopher Lane MD Transthoracic Echocardiogram Indication: Murmur BP: 123/65 HR: 69 Rhythm: NSR Findings History: DM, HTN, asthma, recent shingles, obesity, heart murmur 4/6 systolic ejection murmur. Technical Comments: The study quality is fair. The study is technically limited due to patient body habitus. Completed at 1030. Left Ventricle: The left ventricular chamber size is normal. Mild concentric left ventricular hypertrophy is observed. Global left ventricular wall motion and contractility are within normal limits. There is normal left ventricular systolic function. The estimated ejection fraction is 50-55%. Abnormal left ventricular diastolic function is observed. Abnormal left ventricular diastolic filling is observed, consistent with impaired relaxation. Left Atrium: The left atrium is moderately dilated. Right Ventricle: Moderator Band present. The right ventricular cavity size is normal. The right ventricular global systolic function is normal. Right Atrium: The right atrium is mildly dilated. Aortic Valve: The aortic valve is trileaflet. Moderate aortic leaflet calcification is visualized. There is a trace of aortic regurgitation. There is moderate aortic stenosis.peak velocity 3 m/sec Mean gradient 29 mmHg Mitral Valve: There is mitral annular calcification. Mild mitral leaflet calcification is visualized. There is trace to mild mitral regurgitation. There is mild mitral stenosis. Tricuspid Valve: The tricuspid valve leaflets are normal. There is trace to mild tricuspid regurgitation. The right ventricular systolic pressure is estimated at 26 mmHg. No pulmonary hypertension is noted. There is no tricuspid stenosis. Pulmonic Valve: The pulmonic valve appears normal. There is trace to mild pulmonic regurgitation. There is no pulmonic stenosis. Pericardium: There is no significant pericardial effusion. Aorta: There is no dilatation of the ascending aorta. There is no dilatation of the aortic arch. The aortic root is normal in size. Pulmonary Artery: The main pulmonary artery appears normal. Venous: The inferior vena cava appears normal in size. There is a greater than 50% respiratory change in the inferior vena cava dimension. Conclusions Global left ventricular wall motion and contractility are within normal limits. The estimated ejection fraction is 50-55%. The left atrium is moderately dilated. Moderate aortic leaflet calcification is visualized. There is moderate aortic stenosis.peak velocity 3 m/sec Mean gradient 29 mmHg There is trace to mild mitral regurgitation. There is trace to mild tricuspid regurgitation. No pulmonary hypertension is noted. There is no significant pericardial effusion. Compared to study of 03/10/03, the LV fucntion is the same. The aortic valve is more stenotic Measurements Name Value Normal Range RVIDd (AP) 2D 2.9 cm (0.9 - 2.6) RVDdMajor (2D) 3.9 cm (2.2 - 4.4) RAd ISD 4CH 5.1 cm (3.4 - 4.9) RA (A4C)W 4.2 cm (2.9 - 4.6) IVSd (2D) 1.2 cm (0.6 - 1) LVPWd (2D) 1.2 cm (0.6 - 1) LVIDd (2D) 4.6 cm (3.6 - 5.4) LVIDs (2D) 3.5 cm - LV FS (2D) 25 % (25 - 45) Aortic Annulus 1.6 cm (1.4 - 2.6) Ao root diameter (2D) 2.7 cm (2.1 - 3.5) Ascending Ao 3.1 cm (2.1 - 3.4) Aortic arch 2.2 cm (1.8 - 3.4) LA dimension (AP) 2D 4.3 cm (2.3 - 3.8) LAd ISD 4CH 6.2 cm (2.9 - 5.3) LA ISD 4CH W 4.5 cm (2.5 - 4.5) Name Value Normal Range LA ESV SP 4CH (A/L) 74 ml - LA ESV SP 2CH (A/L) 105 ml - LA ESV BP (A/L) 89 ml - LA ESV BP (A/L) index 44.15 ml/m2 - LA ESV SP 4CH (MOD) 71 ml - LA ESV SP 2CH (MOD) 100 ml - Name Value Normal Range MV E-wave Vmax 1.4 m/sec - MV deceleration time 298.83 msec - MV A-wave Vmax 1.65 m/sec - MV E:A ratio 0.83 ratio - LV septal e' Vmax 0.04 m/sec - LV lateral e' Vmax 0.05 m/sec - LV E:e' septal ratio 35 ratio - LV E:e' lateral ratio 28 ratio - Name Value Normal Range AV Vmax 3.1 m/sec - AV VTI 84.3 cm - AV peak gradient 38.12 mmHg - AV mean gradient 27.2 mmHg - LVOT diameter 2 cm - LVOT Vmax 1.1 m/sec - LVOT VTI 26.34 cm - LVOT peak gradient 4.85 mmHg - LVOT mean gradient 2.75 mmHg - DOI (VTI) 0.31 ratio - TITI (continuity Vmax) 1.11 cm2 - TITI (continuity VTI) 0.98 cm2 - KLAUDIA Vmax 0.72 m/sec - Name Value Normal Range MV Vmax 1.84 m/sec - MV VTI 54.08 cm - MV peak gradient 13.58 mmHg - MV mean gradient 6.37 mmHg - MV PHT 102.5 msec - MVA (PHT) 2.14 cm2 - MVA (continuity VTI) 1.52 cm2 - Name Value Normal Range TR Vmax 2.4 m/sec - TR peak gradient 23 mmHg - RAP 3 mmHg - RVSP 26 mmHg - IVC diameter 1.6 cm - Name Value Normal Range PV Vmax 0.83 m/sec - PV peak gradient 2.76 mmHg -
--- NOTE | 2017-01-24 15:41 | PN ---
Subjective Date of Service: 01/24/17 Interval History: Pt stated that the pain is better when she hold pressure in the spot in RUQ. THIS TIME it had been 3 weeks, but in fact she has had this pain off and on for over 35 years. Pain is worse after eating Objective Active Medications: Acetaminophen (Tylenol Tab*) 650 mg PO Q4H PRN PRN Reason: FEVER/PAIN Last Admin: 01/23/17 20:19 Dose: 650 mg Aspirin (Aspirin Ec Low Dose*) 81 mg PO BEDTIME [facility] Last Admin: 01/23/17 20:18 Dose: 81 mg Atorvastatin Calcium (Lipitor*) 20 mg PO BEDTIME [facility] Last Admin: 01/23/17 20:18 Dose: 20 mg Dextrose (D50w Syringe 50 Ml*) 12.5 gm IV PUSH .FOR FS < 60 - SS PRN PRN Reason: FS < 60 Fluticasone Propionate (Flonase Nasal Hagaman 50mcg*) 1 spray BOTH NARES DAILY PRN PRN Reason: ALLERGIES Sodium Chloride (Ns 0.9% 1000 Ml*) 1,000 mls @ 75 mls/hr IV PER RATE [facility] Last Admin: 01/23/17 17:03 Dose: 75 mls/hr Insulin Human Lispro (Humalog*) 0 units SUBCUT ACHS [facility] PRN Reason: Protocol Last Admin: 01/24/17 10:46 Dose: 4 unit Lisinopril (Prinivil Tab*) 5 mg PO DAILY [facility] Last Admin: 01/24/17 10:26 Dose: 5 mg Morphine Sulfate (Morphine Inj (Syringe)*) 1 mg IV Q4H PRN PRN Reason: PAIN Last Admin: 01/23/17 20:20 Dose: 1 mg Omeprazole (Prilosec Cap*) 20 mg PO QAM [facility] Last Admin: 01/24/17 10:26 Dose: 20 mg Ondansetron HCl (Zofran Inj*) 4 mg IV Q6H PRN PRN Reason: NAUSEA Last Admin: 01/23/17 20:33 Dose: 4 mg Vital Signs 01/23/17 01/23/17 01/23/17 15:56 19:32 20:00 Temperature 98.2 F 98.2 F Pulse Rate 76 72 Respiratory 16 14 16 Rate Blood Pressure 123/84 125/56 (mmHg) O2 Sat by Pulse 99 95 Oximetry 01/23/17 01/23/17 01/24/17 20:20 23:34 00:27 Temperature 97.9 F Pulse Rate 72 Respiratory 16 12 16 Rate Blood Pressure 114/58 (mmHg) O2 Sat by Pulse 95 Oximetry 01/24/17 01/24/17 01/24/17 04:16 07:19 11:49 Temperature 97.5 F 97.8 F 98.3 F Pulse Rate 66 75 66 Respiratory 16 18 19 Rate Blood Pressure 123/65 120/57 146/60 (mmHg) O2 Sat by Pulse 97 100 97 Oximetry Oxygen Devices in Use Now: None Appearance: 71 yo F in nAD, AAOx3 Eyes: No Scleral Icterus, PERRLA Ears/Nose/Mouth/Throat: NL Teeth, Lips, Gums, Mucous Membranes Moist Neck: NL Appearance and Movements; NL JVP, Trachea Midline Respiratory: Symmetrical Chest Expansion and Respiratory Effort, Clear to Auscultation Cardiovascular: NL Sounds; No Murmurs; No JVD, RRR Abdominal: No Hepatosplenomegaly, - - RUQ tenderness, no rebound, no guarding, BS+ Lymphatic: No Cervical Adenopathy Extremities: No Edema, No Clubbing, Cyanosis Skin: No Rash or Ulcers, No Nodules or Sclerosis Neurological: Alert and Oriented x 3, NL Muscle Strength and Tone Result Diagrams: 01/24/17 04:48 01/24/17 04:49 Assess/Plan/Problems-Billing Assessment: 71 yo F with h/o HTN , DM and intermittent RUQ abd pain x 35 yrs presents with exacerbation of her chronic pain - Patient Problems (1) RUQ abdominal pain Comment: with tenderness today pt confessed that the pain had been actually ongoing x 35yrs. So far w/up including :CT, RUQ US and HIDA scan is negative Asked GI to see pt. Dr. Lee will perform EGD tonight-pt will likley need to stay another night due to that Also spoke with pt about a possible dx of chronic abd wall pain (2) DM type 2 (diabetes mellitus, type 2) Comment: cont ISS (3) HTN (hypertension) Comment: controled. Cont lisinopril (4) Troponin I above reference range Comment: mild at 0.04 elevation without cardiac symptoms. Troponin "flat" x 2, no further w/up indicated (5) DVT prophylaxis Comment: HSQ Status and Disposition: OBV
[2017-01-24] MEDS ORDERED: fentaNYL* 50 MCG/ML 2 ML VIAL (100 MCG VIAL) ONE (17:02)
[2017-01-24] MEDS ORDERED: Midazolam* 1 MG/ML 10 ML VIAL (10 MG) ONE (17:02)
[2017-01-24 18:41] VITALS: BP 120/51
[2017-01-24] MEDS: Aspirin EC Low Dose* 81 MG TAB.EC PO SCH (20:24)
[2017-01-24] MEDS: Atorvastatin* 20 MG TAB PO SCH (20:24)
--- NOTE | 2017-01-24 21:55 | CONS ---
CONSULTATION REPORT: DATE OF CONSULT: 01/24/17 PATIENT OF: Cheryl Hernandez MD REFERRED TO: Giacomo Waters MD (DICTATED BY DOLORES VALENZUELA) REASON FOR CONSULT: Right upper quadrant abdominal pain. HISTORY OF PRESENT ILLNESS: Mrs. Torres is a pleasant 71-year-old female, who presented to the emergency room yesterday with complaints of worsening abdominal pain over the past 2 weeks. She reports episodes of right upper quadrant abdominal pain over the past 2 weeks that has gotten progressively worse. She describes similar types of pain that she experienced approximately 2 or 3 times every year for the past 35 years. The pain is typically localized to the epigastric and right upper quadrant area, appears to be more dull with sharp episodes that wax and wane as days go. There is nothing that seem to trigger her pain that usually resolve a week or two later with no other participating factors. She denies any worsening pain after she eats. She has had multiple workup in the past including upper endoscopy and ultrasounds that failed to reveal any etiology regarding her pain. She was seen most recently at [facility] where she had laboratory workup and ultrasound that was unremarkable as well. She presented to the emergency room yesterday with 2 weeks' history of worsening similar type of pain and was found to have some cardiac palpitation on exam. The patient was admitted under the medical services for further evaluation of chronic abdominal pain. She had multiple workup including ultrasound and HIDA scan to reveal the actual etiology of her pain and we were asked to see the patient in consultation to rule out any possibility of gallbladder disease. PAST MEDICAL HISTORY: As mentioned above, significant for heart murmur which the patient is aware of and was heard before by primary care physician on exam; however, she never had any workup done and has never seen a physical therapy supervisor in the past. She also has history of DVT over 40 years ago. She has history of hypertension; asthma; GERD; type 2 diabetes mellitus; depression; and 3 episodes of herpes zoster infection with shingles, most recently 2 months ago, localized to the left axillary region. PAST SURGICAL HISTORY: Significant for bilateral carpal tunnel release and thumb surgery and trigger finger release in the past. She also had partial hysterectomy years ago. CURRENT MEDICATIONS: Her medications at home include: 1. Omeprazole 10 mg daily. 2. Insulin Lantus per sliding scale on a daily basis. 3. Albuterol inhaler q.i.d. p.r.n. for shortness of breath. 4. Aspirin 81 mg p.o. daily. 5. Lisinopril 5 mg p.o. daily. 6. Flonase 1 spray in both nostrils daily as needed for seasonal allergies. 7. Lipitor 20 mg daily. 8. Metformin 1000 mg p.o. b.i.d. 9. Detrol 2 mg p.o. b.i.d. ALLERGIES: She has multiple allergies. Please refer to the patient chart and list to see the allergies involved. FAMILY HISTORY: She denies any family history of gallbladder disease or colorectal malignancies. SOCIAL HISTORY: The patient has never smoked. She drinks alcohol rarely. She is retired and [place]. She denies illicit drug use. REVIEW OF SYSTEMS: See HPI, otherwise negative. She denies any headache, dizziness, blurred vision, or double vision. No sore throat, cough, wheezing, or shortness of breath. She denies any chest pain, palpitation, or ankle swelling. No back pain, flank pain, dysuria, hematuria, or urinary frequency. She admits to chronic right upper quadrant and epigastric pain but denies any associated nausea, vomiting, or changes in her bowel habits. No history of inflammatory bowel disease or ulcerative colitis. No fever, chills, night sweats, or recent weight loss. PHYSICAL EXAM: General: She is a pleasant, healthy appearing, elderly female, in no acute distress or discomfort at the time of consultation. Vitals: Most recent set of vitals reveals temperature of 98.3, pulse of 66, blood pressure of 146/60, respirations of 19, and O2 sat of 97% on room air. HEENT: Sclerae anicteric. PERRLA. EOMs intact. Oropharynx is pink and moist with no exudate. Neck: Supple, trachea midline. No cervical adenopathy, thyromegaly, or JVD. Lungs: Clear to auscultation bilaterally. Heart: Regular rate and rhythm. There is a harsh systolic murmur heard best on the left sternal edge was noted approximately 3/6 in intensity. There are no rubs or gallops. Back with normal curvature, no CVA tenderness. Breast Exam: Deferred at this time. Abdomen: Soft and nondistended. There is moderate epigastric and right upper quadrant tenderness noted on deep palpation. There is no guarding, rigidity, or rebound. Dos Santos's sign was negative. No hernias, masses, or hepatosplenomegaly. Extremities: Without cyanosis, clubbing, or edema. Neurologic: Grossly intact. Rectal exam deferred at this time. LABORATORY DATA: CBC today with white count of 5600, hemoglobin 10.2, hematocrit 30, and platelets of 225. Her chemistry is essentially within normal limits. Troponin has been 0.04 in the last 2 draws and the patient denies any chest pain. LFTs, lipase are within normal limits. ACCESSORY DIAGNOSTIC DATA: As mentioned above, the patient had multiple imaging studies including CT scan of the abdomen and pelvis yesterday morning that revealed no evidence of any inflammatory changes or sign of obstruction including the GI tract and no evidence of cholecystitis. She also had an ultrasound of the right upper quadrant that revealed no evidence of cholecystitis or cholelithiasis as well as evidence of fatty infiltration of the liver. HIDA scan performed earlier this morning revealed slight delay in the filling of the gallbladder; however, normal study was noted. IMPRESSION: A 71-year-old female with chronic intermittent right upper quadrant and epigastric abdominal pain of unclear etiology. PLAN: I had a long discussion with the patient today. Her pain does not appear to be biliary in origin; however, she has been dealing with that for over 35 years now. All her imaging studies and laboratory workup showed no evidence of any acute process at this time. The patient was also seen in consultation with GI and I believe she is going to have an upper endoscopy later today for further evaluation. The patient had an upper endoscopy as she mentioned years ago as well as colonoscopy back in 2004, with only a small polyp removed. I encouraged her to follow up with us as an outpatient in case if she gets discharged later today or tomorrow. We will talk to her more about proceeding with possibly gallbladder surgery given her ongoing symptoms; however , I do not think there is any acute process need surgical intervention at this time. Thank you for this consultation. DOLORES VALENZUELA [id number]/[facility] #: [id number] DIANE
[2017-01-24] MEDS ORDERED: Heparin VIAL(*) 5000 UNITS/ML VIAL (FIVE THOUSAND) SUBCUT SCH (22:00)
--- NOTE | 2017-01-25 08:17 | CONS ---
GASTROENTEROLOGY CONSULTATION: DATE OF CONSULTATION: 01/24/17 HOSPITAL PROVIDER: Cheryl Hernandez MD PRIMARY CARE PROVIDER: Christopher Lane MD REASON FOR CONSULTATION: Epigastric pain. HISTORY OF PRESENT ILLNESS: Mrs. Torres is a very pleasant 71-year-old female who presented earlier this morning with complaints of severe pain in the right upper quadrant. She states this has been a chronic pain for over 35 years, but has been intermittent throughout the years. Over the last three weeks, she has been experiencing the right upper quadrant pain described as sharp and stabbing , and worsens after eating meals. Pain was refractory to any [id number] pain medication, thus she presented to the emergency room for further evaluation. She denies nausea, vomiting, hematemesis, no change in bowel movements, no melena, or hematochezia. She has previously had an upper endoscopy many years ago that was unrevealing. She has had a right upper quadrant ultrasound and HIDA scan, which was negative for an acute process. The ultrasound, however, did show a fatty liver. She has had prior colonoscopy approximately 10 years ago, which was normal at that time. She denies any weight changes, dysphagia, odynophagia. She states that she has had multiple workups done for this pain in the past, but has been negative. Gastroenterology was consulted for further evaluation of patient's symptoms and need for upper endoscopy to rule out peptic ulcer disease. PAST MEDICAL HISTORY: 1. Diabetes type 2. 2. Hypertension. 3. Gastroesophageal reflux disease. 4. Asthma. 5. History of kidney stones. 6. Arthritis. 7. Anxiety. 8. Depression. 9. Panic disorder. PAST SURGICAL HISTORY: 1. Partial hysterectomy in 1980. 2. Bilateral carpal tunnel release in 1999. 3. Left index ganglion tendon sheath excision in 2003. 4. Left thumb suture in 2009. 5. Left third finger ganglion cyst in 2006. 6. Colonoscopy 10 years ago. 7. Upper endoscopy greater than 10 years ago. HOME MEDICATIONS: 1. Albuterol. 2. Aspirin 81 mg. 3. Insulin glargine. 4. Lisinopril. 5. Omeprazole 10 mg in the morning. 6. Tolterodine. 7. Metformin. HOSPITAL MEDICATIONS: 1. Tylenol as needed. 2. Aspirin 81 mg. 3. Lipitor. 4. Flonase. 5. Lisinopril. 6. Humalog. 7. Lispro. 8. Morphine as needed. 9. Prilosec 10 mg in the morning. 10. Zofran as needed. FAMILY HISTORY: Unknown gastrointestinal malignancies, but positive for hypertension and diabetes. SOCIAL HISTORY: She is retired and lives with her family. Denies any tobacco, alcohol or recreational drug use. REVIEW OF SYSTEMS: On a 14-point scale have been reviewed. All pertinent positives and negatives have been noted above in the HPI. PHYSICAL EXAM: Vital Signs: Temperature 98.5, pulse 76, respirations 18, oxygen saturation 95% on room air, blood pressure 120/51. Generally, the patient is alert and oriented x3, slightly anxious, well nourished. HEENT: Anicteric. Sclerae bilaterally. Neck is supple. Cardiovascular Exam: Regular rate and rhythm. Pulmonary Exam: Clear to auscultation bilaterally. Abdominal Exam: Obese. Positive bowel sounds. Soft, nontender, nondistended. No rebound, guarding or rigidity. There is some mild tenderness to palpation in the right upper quadrant area. Extremities: No clubbing, cyanosis, or edema , warm. Neurological Exam: No gross focal deficits are appreciated at this time. DIAGNOSTIC STUDIES/LAB DATA: WBC 5.6, hemoglobin 10.2, hematocrit 30, platelets 225. Sodium 138, potassium 4.2, chloride 105, CO2 27, anion gap 6, BUN 16, creatinine 1.01, calcium 7.9, total bilirubin 0.60, AST 24, ALT 23, alkaline phosphatase 89, troponin 0.04, total protein 6.7, albumin 3.5. Echocardiogram revealed moderate aortic stenosis. ASSESSMENT AND PLAN: Mrs. Torres is a pleasant 71-year-old female with a history of anxiety, depression, panic disorder, and gastroesophageal reflux disease who presented to [facility] ER with complaints of acute-on- chronic epigastric pain. The patient states this pain has been intermittent for approximately 35 years now. Most recently, her pain began approximately 3 weeks ago and has been slowly worsening. She describes the pain as a sharp stabbing felt in her right upper quadrant. Gallbladder ultrasound and HIDA scan were grossly unrevealing for an acute process. Gastroenterology was consulted for further evaluation and endoscopy to rule out peptic ulcer disease. 1. Epigastric pain. The patient has had a gallbladder ultrasound and a HIDA scan which have been unremarkable for an acute process. Patient's liver enzymes are currently normal. Her last endoscopy was several years ago, and was normal at that time. She is currently on Prilosec 10 mg in the morning. She is n.p.o. for an upper endoscopy to be performed today for further evaluation. 2. Fatty liver seen on ultrasound. Encouraged weight loss and low-fat meals. Currently liver function tests are normal. No further workup is indicated at this time. Should have a lipid panel checked as an outpatient. 3. Normocytic anemia. The patient had a colonoscopy approximately 10 years ago per her history and was normal. We will perform an upper endoscopy today for further evaluation of epigastric pain. Continue to monitor patient's hemoglobin, no evidence of GI bleed at this time. Thank you Dr. Hernandez for allowing us to participate in the care of your patient. We will continue to follow your patient closely. Further recommendations will be provided after upper endoscopy. If you should have any further questions or concerns in the meantime, please do not hesitate to contact us. [id number]/[facility] #: [id number] DIANE
--- NOTE | 2017-01-25 08:51 | PRO ---
CC: Dr. Lane and Dr. Hernandez * GASTROENTEROLOGY OPERATIVE REPORT: DATE OF PROCEDURE: 01/23/17 OPERATIVE PROCEDURE: Esophagogastroduodenoscopy to the second portion of the duodenum. SURGEON: Juanis Lee DO. ANESTHESIA: 1. Midazolam 12 mg IV. 2. Fentanyl 150 mcg IV. HISTORY OF PRESENT ILLNESS: Veena is a pleasant 71-year-old female who presents today with complaints of acute and chronic epigastric pain. She had a gallbladder ultrasound and a HIDA scan, which was unrevealing as an etiology for the patient's symptoms. Gastroenterology was consulted for an endoscopy for further evaluation. PREOPERATIVE DIAGNOSIS: 1. Epigastric pain. POSTOPERATIVE DIAGNOSES: 1. Irregular appearing gastroesophageal junction at 35 cm from the incisors with biopsies. 2. A 6-mm sessile antral polyp with polypectomy. 3. Irregular prepyloric fold with biopsies. 4. Normal appearing duodenum to the second portion with biopsies to rule out celiac disease. 5. Normal mid and proximal esophagus. RECOMMENDATIONS: 1. Will followup with path results. 2. Continue PPI therapy. 3. Encourage antiflux lifestyle modifications. DESCRIPTION OF PROCEDURE: Esophagogastroduodenoscopy was explained in detail to the patient. The risks, benefits, complications, alternatives, and possibilities of missed lesions were explained and understood. Complications included, but were not limited to reaction to anesthesia, aspiration, increased risk of bleeding and perforation. All questions were answered. The patient demonstrated understanding of the conversation. Informed consent was obtained. Next, the patient was brought to the endoscopy suite, placed in the left lateral recumbent position where blood pressure, cardiac, and oxygen monitors were applied. The patient was found to be a fit candidate for moderate anesthesia. After adequate IV sedation was achieved, a bite block was placed. Next, a standard adult Olympus endoscope was inserted per os under direct visualization. The first and second portions of the duodenum were grossly unremarkable. Cold forceps biopsies were obtained of this area to rule out celiac disease. Further withdrawal of the endoscope into the gastric lumen revealed a 6-mm sessile polyp in the antrum. This was removed via jumbo cold forceps. Hemostasis was seen. Near the prepyloric area, a thicker fold was noted. This was biopsied via jumbo forceps. There was mild inflammation present in the antrum, suggestive of antral gastritis. Cold forceps biopsies were obtained from the antrum and body to rule out H. pylori. On retroflexion, the patient had a normal cardia sling. Further withdrawal of the endoscope into the distal esophagus revealed mildly irregular gastroesophageal junction at 35 cm from the incisors. This area was biopsied. The rest of the tubular esophagus was normal appearing. Endoscope was removed from the patient. The patient tolerated the procedure well. There were no immediate complications. After a period of observation, the patient was transferred back to the medical floor for further evaluation and care. Thank you, Dr. Lane and Dr. Hernandez, for allowing us to participate in the care of your patient. If you should have any further questions or concerns, please do not hesitate to contact us. [id number]/[facility] #: [id number] DIANE
--- NOTE | 2017-01-26 06:48 | DS ---
CC: Dr. Lane; Dr. Lee; Dr. Waters * DISCHARGE SUMMARY: DATE OF ADMISSION: 01/23/17 DATE OF DISCHARGE: 01/24/17 PRIMARY CARE PROVIDER: Dr. Lane. DISCHARGE DIAGNOSES: 1. Right upper quadrant abdominal pain. 2. Exacerbation of chronic abdominal pain that has been ongoing for 35 years of unknown etiology. SECONDARY DIAGNOSES: 1. Longstanding history of heart murmur, likely due to moderate aortic stenosis. 2. History of DVT over 40 years ago. 3. Hypertension. 4. Asthma. 5. Gastroesophageal reflux disease. 6. Diabetes type 2. 7. Depression. 8. History of recurrent shingles. MEDICATIONS: At discharge are unchanged from admission and include: 1. Omeprazole 20 mg daily. 2. Insulin Lantus on a daily basis as taken at home. 3. Albuterol inhaler up to 4 times a day one inhalation. 4. Aspirin 81 mg daily. 5. Lisinopril 5 mg daily. 6. Flonase 1 spray both nostrils daily p.r.n. 7. Lipitor 20 mg daily. 8. Metformin 1000 mg b.i.d. 9. Detrol 2 mg b.i.d. LABORATORY DATA AND STUDIES PERFORMED DURING THE HOSPITAL STAY: Include: On ; white blood cell count of 5.6, hemoglobin 10.2, hematocrit of 30 and platelets of 225. Sodium was 138, potassium 4.2, chloride 105, carbon dioxide 26, BUN 16, creatinine 1.01. Liver function tests were unremarkable. Troponin range was at 0.04 x3 throughout the patient's hospital stay. Urinalysis was unremarkable. Upper endoscopy performed by Dr. Lee from Gastroenterology on 01/24/17 showed irregular appearing gastro-esophageal junction at 35 cm from the incisors with biopsies. A 6 mm sessile antral polyp with polypectomy. Irregular prepyloric folds likely from chronic inflammation. Biopsies were obtained. Normal appearing duodenum to the second portion. Biopsies were obtained to rule out celiac disease. Normal mid and proximal esophagus. Pathology from the duodenal biopsy showed benign small intestinal mucosa of the stomach, three were 3 biopsies gastric mucosa with no significant pathologic abnormalities as well as hyperplastic polyp. GE junction biopsy shows columnar type mucosa with marked chronic inflammation, dysplasia and metaplasia was absent. Transthoracic echocardiogram obtained on 01/24/17, showed EF of 50% to 55% with abnormal global left ventricular wall motion and contractility. There was moderate aortic stenosis with peak velocity of 3 m/sec and a gradient of 29 mmHg. There was mild mitral regurgitation and mild tricuspid regurgitation. Comparing with the studies from 2003, the aortic valve is more stenotic. Abdominal ultrasound obtained on 01/23/17, impression "fatty infiltration of the liver. Negative for gallbladder pathology." HIDA scan obtained on 01/24/17, impression "slight delayed opacification of the gallbladder. Otherwise unremarkable study." The consultations during the hospital stay included Dr. Lee from Gastroenterology and Dr. Waters from General Surgery. HOSPITALIZATION COURSE: Katherine Torres is a 71-year-old female who presented initially complaining of 2 weeks of right upper quadrant abdominal pain. Later on during the hospital stay, she actually corrected herself and stated that the abdominal pain had been intermittently present for over 35 years. The patient underwent extensive evaluation for the pain including a CT of the abdomen and pelvis, abdominal ultrasound as well as transthoracic echocardiogram and HIDA scan. All those tests as mentioned above were nonconclusive of any pathology apart from the patient's known aortic stenosis; however, that at this point is moderate. The patient was seen by General Surgery who recommended followup as needed, but no surgical intervention was indicated. Dr. Lee from Gastroenterology saw the patient in consultation and performed an upper endoscopy with no abnormalities noted and hyperplastic polyp removed as mentioned above with pathology benign. Unfortunately, we were unable to find the cause of the patient's chronic abdominal pain. She is asked to see her primary care provider for further evaluation. PHYSICAL EXAM AT THE TIME OF DISCHARGE: Please see daily progress notes. The patient is recommended to follow up with her primary care provider, Dr. Lane, at approximately 7 days. [id number]/[facility] #: [id number] [facility]
== END 2017-01-24 21:05 | disposition home or self-care (01) ==
LOC: ED 10:14 → MEDTELE 15:30
PROVIDERS: ADMIT Internal Medicine; ATTEND Internal Medicine
PROC: 0DB98ZX Excision of Duodenum, Via Natural or Artificial Opening Endoscopic, Diagnostic (ICD-10-PCS; principal; 2017-01-23)
PROC: 0DB78ZX Excision of Stomach, Pylorus, Via Natural or Artificial Opening Endoscopic, Diagnostic (ICD-10-PCS; 2017-01-23)
PROC: 0DB48ZX Excision of Esophagogastric Junction, Via Natural or Artificial Opening Endoscopic, Diagnostic (ICD-10-PCS; 2017-01-23)
PROC: 0D568ZZ Destruction of Stomach, Via Natural or Artificial Opening Endoscopic (ICD-10-PCS; 2017-01-23)
DX: R10.11 Right upper quadrant pain (principal); R10.13 Epigastric pain; K31.7 Polyp of stomach and duodenum; R74.8 Abnormal levels of other serum enzymes; J45.909 Unspecified asthma, uncomplicated; E87.5 Hyperkalemia; K76.0 Fatty (change of) liver, not elsewhere classified; E11.9 Type 2 diabetes mellitus without complications; Z79.4 Long term (current) use of insulin; K21.9 Gastro-esophageal reflux disease without esophagitis; Z79.82 Long term (current) use of aspirin; Z79.899 Other long term (current) drug therapy; Z88.8 Allergy status to other drugs, medicaments and biological substances; Z88.1 Allergy status to other antibiotic agents; R94.31 Abnormal electrocardiogram [ECG] [EKG]
CPT/HCPCS: 36415; 71020; 74176; 76705; 78226; 80053; 81003; 83605; 83690; 84484; 85025; 86140; 86850; 86900; 86901; 88305; 93005; 93306; 96361; 96374; 96375; 96376; 99156; 99157; 99283; A9270-GY; A9537; G0378; J2250; J2270; J2405; J3010

== ENCOUNTER 2017-03-29 07:48 | Day surgery (SDC) | payer MEDICARE, BC ==
[~2017-03-29 07:48] MED LIST changes: +Acetaminophen TAB* 325 MG PO PRN; +Buffered Lidocaine 0.9% SYRIN* 5 ML/SYR SYRINGE INTRADERM ONE; -Buffered Lidocaine 1% SYR 3ML* 3 ML/SYR SYRINGE INTRADERM ONE; -Bupivacaine 0.5% SDV PF* 30 ML VIAL ONE; -Clindamycin 900 MG IVPREMIX(* 900 MG/50 ML SDV IV ONE; +Cyclopentolate 1% OPTH.SOL* 2 ML BTL ONE; +Ketorolac 0.5% OPHTH (NF) 0.5 % 5 ML BTL ONE; -Lidocaine 0.5%* 50 ML SDV ONE; +Lidocaine 1% MPF* 2 ML VIAL ONE; +Lidocaine 2% EPI 1:200000 MPF* 20 ML VIAL ONE; -Metoclopramide IV* 5 MG/ML 2 ML VIAL IV SLOW PU ONE; -Metoclopramide IV* 5 MG/ML 2 ML VIAL ONE; +Neomycin/Polymy/Dex OPTH.SUSP* MAXITROL 0.1% 5 ML ONE; +Phenylephrine 2.5% OPTH.SOL* 2 ML BTL ONE; +Povidone Iodine 5% OPTH* 30 ML BTL ONE; +Proparacaine 0.5% OPHTH.SOL* 15 ML BTL ONE; -Sodium Citrate/Citric Acid* 15 ML UDC ONE; -Sodium Citrate/Citric Acid* 15 ML UDC PO ONE; +acetaZOLAMIDE TAB* 250 MG ONE; -fentaNYL* 50 MCG/ML 2 ML VIAL (100 MCG VIAL) ONE
[2017-03-29] MEDS ORDERED: Midazolam* 1 MG/ML 2 ML VIAL (2 MG) ONE (09:43)
[2017-03-29 10:16] VITALS: BP 130/61
--- NOTE | 2017-03-29 11:09 | OP ---
DATE OF OPERATION: 03/29/2017 - [facility] DATE OF : 1945. SURGEON: Luis Morse M.D. PREOPERATIVE DIAGNOSIS: Cataract right eye. POSTOPERATIVE DIAGNOSIS: Cataract right eye. OPERATIVE PROCEDURE: Extracapsular cataract extraction with intraocular lens implant right eye. DESCRIPTION OF PROCEDURE: The patient was brought to the operating room after being given 1/2% Alcaine with epinephrine drops in the preoperative area. The eye was prepped and draped in the usual sterile fashion. Sterile drape and eyelid speculum were placed. Again, topical 1/2% Alcaine with epinephrine was given. A paracentesis incision was made at the 9 o'clock position with the No.75 blade. Clear cornea incision 2.2 x 2.2-mm was created at the 12 o'clock position starting at the anterior limbus using the 2.2-mm keratome. The anterior chamber was irrigated with 0.4 mL of 1% non-preservative intracameral lidocaine and filled with DisCoVisc. A capsulorrhexis was completed using the cystotome and the Utrata forceps. Hydrodissection was performed with balanced salt solution. The lens nucleus was removed with the Phacoemulsification handpiece without incident. Cortex was removed with the irrigation-aspiration handpiece. The capsular bag was re-inflated using DisCoVisc and an [id number] 19.5 implant was inserted with the shooter. The irrigation-aspiration handpiece was used to remove all residual DisCoVisc. The eye was refilled with balanced salt solution and the wound checked and found to be watertight. Topical Maxitrol drops were given. [id number]/[facility] #: [id number] [facility]
== END 2017-03-29 10:12 | disposition home or self-care (01) ==
LOC: OREAST 07:48
PROVIDERS: ATTEND Specialist
DX: H25.811 Combined forms of age-related cataract, right eye (principal); H33.8 Other retinal detachments; E11.3291 Type 2 diabetes mellitus with mild nonproliferative diabetic retinopathy without macular edema, right eye; Z79.4 Long term (current) use of insulin; I10 Essential (primary) hypertension; I35.0 Nonrheumatic aortic (valve) stenosis; D64.9 Anemia, unspecified; F40.240 Claustrophobia; F41.9 Anxiety disorder, unspecified
CPT/HCPCS: A9270-GY; J2250; V2632

== ENCOUNTER 2017-04-05 08:08 | Day surgery (SDC) | payer MEDICARE, BC ==
[~2017-04-05 08:08] MED LIST changes: -Midazolam* 1 MG/ML 2 ML VIAL (2 MG) ONE
[2017-04-05] MEDS ORDERED: Midazolam* 1 MG/ML 2 ML VIAL (2 MG) ONE ×3 (09:29→09:54)
[2017-04-05 10:16] VITALS: BP 123/57
--- NOTE | 2017-04-05 13:03 | OP ---
DATE OF OPERATION: 04/05/2017 - [facility] DATE OF : 1945. SURGEON: Luis Morse M.D. PREOPERATIVE DIAGNOSIS: Cataract left eye. POSTOPERATIVE DIAGNOSIS: Cataract left eye. OPERATIVE PROCEDURE: Extracapsular cataract extraction with intraocular lens implant left eye. DESCRIPTION OF PROCEDURE: The patient was brought to the operating room after being given 1/2% Alcaine with epinephrine drops in the preoperative area. The eye was prepped and draped in the usual sterile fashion. Sterile drape and eyelid speculum were placed. Again, topical 1/2% Alcaine with epinephrine was given. A paracentesis incision was made at the 3 o'clock position with the No.75 blade. Clear cornea incision 2.2 x 2.2-mm was created at the 6 o'clock position starting at the anterior limbus using the 2.2-mm keratome. The anterior chamber was irrigated with 0.4 mL of 1% non-preservative intracameral lidocaine and filled with DisCoVisc. A capsulorrhexis was completed using the cystotome and the Utrata forceps. Hydrodissection was performed with balanced salt solution. The lens nucleus was removed with the Phacoemulsification handpiece without incident. Cortex was removed with the irrigation-aspiration handpiece. The capsular bag was re-inflated using DisCoVisc and an [id number] 18.5 implant was inserted with the shooter. The irrigation-aspiration handpiece was used to remove all residual DisCoVisc. The eye was refilled with balanced salt solution and the wound checked and found to be watertight. Topical Maxitrol drops were given. [id number]/[facility] #: [id number] [facility]
== END 2017-04-05 10:17 | disposition home or self-care (01) ==
LOC: OREAST 08:08
PROVIDERS: ATTEND Specialist
DX: H25.812 Combined forms of age-related cataract, left eye (principal); H33.8 Other retinal detachments; Z79.84 Long term (current) use of oral hypoglycemic drugs; E11.3292 Type 2 diabetes mellitus with mild nonproliferative diabetic retinopathy without macular edema, left eye; K21.9 Gastro-esophageal reflux disease without esophagitis
CPT/HCPCS: A9270-GY; J2250; V2632

== ENCOUNTER 2017-07-28 09:09 | Day surgery (SDC) | payer MEDICARE, BC ==
--- NOTE | 2017-07-20 14:06 | HP ---
PREOPERATIVE HISTORY AND PHYSICAL: DATE OF OFFICE VISIT/ENCOUNTER: 07/12/17 DATE OF SURGERY/ADMISSION: 07/28/17 LOCATED WITHIN [facility] ATTENDING SURGEON: Melany Beavers MD.* (DICTATED BY DOLORES NASH) PROCEDURE: Excision cyst, right index finger CHIEF COMPLAINT: Cyst on right index finger. HISTORY OF PRESENT ILLNESS: This is a 71-year-old female who complains of a lump on the dorsal aspect of her right index finger. It has been present for about a year. It bothers her when any pressure is applied. Otherwise, it is not painful and it is not restricting any range of motion. She would like to have the mass removed. PAST MEDICAL HISTORY: 1. Heart murmur 2. History of DVT approximately 40 years ago. 3. Hypertension. 4. Asthma. 5. GERD. 6. Diabetes. 7. Depression. 8. History of shingles. 9. Postherpetic neuralgia. 10. Dyslipidemia. PAST SURGICAL HISTORY: 1. Left index finger cyst excision. 2. Left long finger cyst excision. 3. Bilateral carpal tunnel releases. 4. Left thumb surgery. 5. Trigger finger surgery. 6. Partial hysterectomy. 7. Bilateral cataract removal MEDICATIONS: 1. Aspirin 81 mg daily. 2. Atorvastatin calcium 20 mg daily. 3. Flonase 50 mcg per spray p.r.n. 4. Ibuprofen 600 mg 1 tab 3 times a day p.r.n. 5. Klonopin 1 mg one-half to one tab b.i.d. p.r.n. 6. Lisinopril 5 mg daily. 7. Metformin 1000 mg twice a day. 8. Multivitamin daily. 9. Neurontin 300 mg daily. 10. Prilosec 10 mg daily. 11. Proventil HFA 108 (90 base) mcg/ACT inhaled 2 puffs 4 times a day p.r.n. 12. Tolterodine tartrate 2 mg twice a day. ALLERGIES: 1. ADHESIVES cause skin sensitivity. 2. CELEXA cause jitters and shakiness. 3. CODEINE causes headaches. 4. ERYTHROMYCIN causes a painful stomach. 5. IVP CONTRAST causes hives. 6. LATEX sensitivity. 7. PERCOCET headaches. 8. PERCODAN headaches. 9. TETRACYCLINE yeast infection. FAMILY HISTORY: Diabetes, cardiac disease, cancer and osteoarthritis. SOCIAL HISTORY: The patient is retired. She denies tobacco use, recreational drug use, and does not drink alcohol. REVIEW OF SYSTEMS: General: Negative for fevers, chills or night sweats. No known anesthesia problems. HEENT: Negative for headache, lightheadedness, syncopal episodes, visual changes. Integumentary: Negative for abrasions, lesions, or open wounds. Cardiothoracic: Negative for hypertension, chest pain , palpitations, edema. Respiratory: Negative for shortness of breath with exertion, chronic cough, wheezing. GI: Negative for nausea, vomiting, diarrhea , constipation, GERD. : Negative for nocturia, urinary frequency, urgency, history of UTIs, or kidney problems. Musculoskeletal: Positive for current complaint. Negative for chronic or intermittent back pain. Neurological: Negative for paresthesias, numbness, history of seizure, stroke, poor balance. Endocrine: Positive for diabetes, negative for thyroid issues. Hematologic: Positive for history of DVT. Negative for easy bruising, anemia, or excessive bleeding. Infectious Disease: Negative for history of MRSA, hepatitis C, HIV. PHYSICAL EXAMINATION GENERAL: Well-developed, well-nourished 71-year-old female in no acute distress. VITAL SIGNS: Height 5 feet 4 inches, weight 222 pounds, blood pressure 130/82, pulse rate 88. HEENT: Normocephalic, atraumatic. Pupils are equal, round and reactive to light and accommodation. Extraocular movements are intact. NECK: Supple. No palpable lymph nodes. Throat is clear. PULMONARY: Lungs are clear to auscultation bilaterally. No wheezes, rales or rhonchi. CARDIOTHORACIC: Regular rate and rhythm. S1, S2. Murmur detected on auscultation. No rubs or gallops. No edema. ABDOMEN: Positive bowel sounds. Soft, nontender. EXTREMITIES: On exam of the right index finger, there is a small lump present on the dorsal aspect. It is tender to palpation. She has good motion in the finger but increased pain when she flexes the finger. Neurovascular function is intact. NEUROLOGIC: Alert and oriented x3. Cranial nerves II through XII are intact. Sensation is intact to light touch. IMPRESSION: Cyst, right index finger. PLAN/RECOMMENDATIONS: Patient is scheduled to undergo excision of cyst, right index finger, with Dr. Beavers on 07/28/17. She will return to the office 10 days postop for followup and suture removal. A prescription for ibuprofen 600 mg was e-scribed to the patient's pharmacy for postoperative pain management. DOLORES NAHS [id number]/[facility] #: [id number] DIANE
[~2017-07-28 09:09] MED LIST changes: -Acetaminophen TAB* 325 MG PO PRN; -Buffered Lidocaine 0.9% SYRIN* 5 ML/SYR SYRINGE INTRADERM ONE; -Cyclopentolate 1% OPTH.SOL* 2 ML BTL ONE; -Ketorolac 0.5% OPHTH (NF) 0.5 % 5 ML BTL ONE; +Lidocaine 1% INJ* 10 MG/ML 30 ML SDV ONE; -Lidocaine 1% MPF* 2 ML VIAL ONE; -Lidocaine 2% EPI 1:200000 MPF* 20 ML VIAL ONE; -Neomycin/Polymy/Dex OPTH.SUSP* MAXITROL 0.1% 5 ML ONE; -Phenylephrine 2.5% OPTH.SOL* 2 ML BTL ONE; -Povidone Iodine 5% OPTH* 30 ML BTL ONE; -Proparacaine 0.5% OPHTH.SOL* 15 ML BTL ONE; -acetaZOLAMIDE TAB* 250 MG ONE
[2017-07-28 11:25] VITALS: BP 124/54
--- NOTE | 2017-07-29 05:01 | OP ---
DATE OF OPERATION: 07/28/17 [facility] DATE OF : [birth year] SURGEON: Melany Beavers MD. [employer]ER: DOLORES Davis. ANESTHESIA: Local. PRE-OP DIAGNOSIS: Right index finger mass. POST-OP DIAGNOSIS: Right index finger mass. OPERATIVE PROCEDURE: Removal of index finger mass. ESTIMATED BLOOD LOSS: Zero. TOURNIQUET TIME: About 10 minutes. INDICATION FOR PROCEDURE: Katherine is a 71-year-old woman with a painful mass on the dorsoradial aspect of her right index finger, just distal to the PIP joint. She presents for removal. DESCRIPTION OF PROCEDURE: The patient was brought to the operating room, was given a digital block anesthetic with 10 cc of 1% plain lidocaine. The skin of her right hand and forearm was prepped and draped in the usual sterile fashion. The index finger was exsanguinated with a Tourni-Cot, which was left in place during the duration of the procedure. A longitudinal incision was over the mass and we dissected bluntly through the subcutaneous tissue. The mass appeared to be a ganglion cyst emanating from the PIP joint. It was removed with a small portion of the PIP joint capsule and sent to Pathology. The edges of the capsule were then cauterized with a Bovie and the underlying arm small osteophyte and synovial tissue was removed with a rongeur. The wound was irrigated and the skin edges reapproximated with 4-0 nylon suture. The wound was dressed with Xeroform, 4 x 4, Webril, and Coban. The patient tolerated the procedure well, and was brought to the recovery room in good condition. [id number]/[facility] #: [id number] [facility]TDD
== END 2017-07-28 11:37 | disposition home or self-care (01) ==
LOC: OREAST 09:09
PROVIDERS: ATTEND Orthopaedic Surgery
DX: M67.441 Ganglion, right hand (principal); E11.9 Type 2 diabetes mellitus without complications; Z79.84 Long term (current) use of oral hypoglycemic drugs; I10 Essential (primary) hypertension; J45.909 Unspecified asthma, uncomplicated; E78.5 Hyperlipidemia, unspecified; K21.9 Gastro-esophageal reflux disease without esophagitis; Z86.718 Personal history of other venous thrombosis and embolism
CPT/HCPCS: 88304

== ENCOUNTER 2020-10-14 22:05 | Inpatient (IN) ==
[2020-10-14] MEDS ORDERED: Ondansetron 4 mg VIAL 2 MG/ML 2 ml VIAL ONE (22:29)
[2020-10-14] MEDS ORDERED: NS 0.9% 1000 ml BAG 1,000 ML IV ONE (22:31)
[2020-10-14] MEDS ORDERED: Ondansetron 4 mg VIAL 2 MG/ML 2 ml VIAL IV ONE (22:31)
[2020-10-14 23:30] LABS: ABS Basophils 0.1 10^3/ul (0-0.2); ABS Eosinophils 0.2 10^3/ul (0-0.6); ABS Lymphocytes 1.1 10^3/ul (1.0-4.8); ABS Monocytes 0.6 10^3/ul (0-0.8); ABS Neutrophils 7.3 10^3/ul (1.5-7.7); Eosinophil % 1.8 %; Hematocrit 30 % (35-47); Hemoglobin 9.8 g/dL (12.0-16.0); Lymphocyte % 12.4 %; Mean Corpuscular HGB Conc 32 g/dL (31-36); Mean Corpuscular Hemoglobin 26 pg (27-31); Mean Corpuscular Volume 81 fL (80-97); Mean Platelet Volume 7.5 fL (7.4-10.4); Platelet Count 275 10^3/uL (150-450); Red Blood Count 3.76 10^6 /uL (3.70-4.87); Red Cell Distribution Width 17 % (10-15); White Blood Count 9.3 10^3/uL (3.5-10.8)
[2020-10-14 23:52] LABS: ALT 14 U/L (7-52); AST 17 U/L (13-39); Albumin 4.2 g/dL (3.2-5.2); Albumin/Globulin Ratio 1.4 (1-3); Alkaline Phosphatase 89 U/L (35-149); Anion Gap 13 mmol/L (2-11); Blood Urea Nitrogen 35 mg/dL (6-24); C Reactive Protein 1.18 mg/L (<8.01); CO2 Carbon Dioxide 23 mmol/L (22-32); Calcium 7.5 mg/dL (8.6-10.3); Chloride 99 mmol/L (101-111); EGFR African American 43.9 (>60); EGFR Non-African American 36.3 (>60); Globulin 2.9 g/dL (2-4); Glucose 121 mg/dL (70-100); Lipase 39 U/L (11.0-82.0); Potassium 4.3 mmol/L (3.5-5.0); Sodium 135 mmol/L (135-145); Total Protein 7.1 g/dL (6.4-8.9)
[2020-10-15 00:09] LABS: Magnesium 0.7 mg/dL (1.9-2.7); Troponin I 0.06 ng/mL (<0.03)
[2020-10-15] MEDS ORDERED: Magnesium Sulf 4 GM/100 ML IV 4,000 MG/100 ML BAG IVPB ONE (00:16)
[2020-10-15] MEDS ORDERED: Ondansetron 4 mg VIAL 2 MG/ML 2 ml VIAL IV PRN (02:12)
[2020-10-15] MEDS ORDERED: Al Hydrox/Mg Hydrox/Simet LIQ 30 ML UDC PO PRN (02:12)
[2020-10-15] MEDS ORDERED: Dextrose 50% Syringe 50 ml 25 GM/50 ML SYRINGE IV PUSH PRN (02:30)
[2020-10-15] MEDS ORDERED: Calcium Gluconate 1 GM in NS 0.9% 50 ML 50 ML IV ONE (02:35)
[2020-10-15] MEDS ORDERED: CALCIUM GLUCONATE 1GM/50ML NS BAG IV ONE (03:00)
[2020-10-15] MEDS ORDERED: NORMOSOL-R pH 7.4 1000 mL BAG 1,000 ML IV SCH (03:00)
[2020-10-15] MEDS: Enoxaparin 40 MG/0.4 ML SYR SUBCUT SCH ×2 (03:14→21:16)
[2020-10-15 05:51] LABS: ABS Basophils 0.1 10^3/ul (0-0.2); ABS Eosinophils 0.1 10^3/ul (0-0.6); ABS Lymphocytes 1.1 10^3/ul (1.0-4.8); ABS Monocytes 0.5 10^3/ul (0-0.8); ABS Neutrophils 5.9 10^3/ul (1.5-7.7); Eosinophil % 0.7 %; Hematocrit 30 % (35-47); Hemoglobin 10.2 g/dL (12.0-16.0); Mean Corpuscular HGB Conc 34 g/dL (31-36); Mean Corpuscular Hemoglobin 27 pg (27-31); Mean Corpuscular Volume 79 fL (80-97); Mean Platelet Volume 7.4 fL (7.4-10.4); Platelet Count 263 10^3/uL (150-450); Red Blood Count 3.82 10^6 /uL (3.70-4.87); Red Cell Distribution Width 17 % (10-15); White Blood Count 7.6 10^3/uL (3.5-10.8)
[2020-10-15 06:08] LABS: Anion Gap 13 mmol/L (2-11); Blood Urea Nitrogen 30 mg/dL (6-24); CO2 Carbon Dioxide 23 mmol/L (22-32); Calcium 7.7 mg/dL (8.6-10.3); Chloride 100 mmol/L (101-111); EGFR African American 45.7 (>60); EGFR Non-African American 37.8 (>60); Glucose 125 mg/dL (70-100); Magnesium 2.1 mg/dL (1.9-2.7); Potassium 4.2 mmol/L (3.5-5.0); Sodium 136 mmol/L (135-145)
[2020-10-15 06:33] LABS: % Iron Saturation 8 % (15-55); Iron 44 ug/dL (50-212); Total Iron Binding Capacity 526 mcg/dL (250-450); Transferrin 376 mg/dL (203-362); Unsaturated Iron Binding < 511 ug/dL
[2020-10-15 06:42] LABS: Troponin I 0.07 ng/mL (<0.03)
[2020-10-15] MEDS ORDERED: NS 0.9% 1000 ml BAG 1,000 ML IV SCH (06:45)
[2020-10-15 06:46] LABS: TSH Ultra Thyroid Stim Horm 1.88 mcIU/mL (0.34-5.60)
[2020-10-15] MEDS: Insulin ISOPH/REG 70/30 SUBCUT SCH ×2 (10:03→19:28)
[2020-10-15] MEDS: Calcium Carb (TUMS) 500 mg CHEW TAB PO SCH ×2 (10:35→21:58)
[2020-10-15 11:53] LABS: Troponin I 0.08 ng/mL (<0.03)
[2020-10-15 12:09] LABS: Anion Gap 8 mmol/L (2-11); Blood Urea Nitrogen 26 mg/dL (6-24); CO2 Carbon Dioxide 25 mmol/L (22-32); Calcium 7.5 mg/dL (8.6-10.3); Chloride 100 mmol/L (101-111); EGFR African American 48.6 (>60); EGFR Non-African American 40.2 (>60); Glucose 278 mg/dL (70-100); Magnesium 1.9 mg/dL (1.9-2.7); Potassium 4.5 mmol/L (3.5-5.0); Sodium 133 mmol/L (135-145)
[2020-10-15] MEDS ORDERED: CALCIUM GLUCONATE 1GM/50ML NS 1 GM/50 ML BAG IV ONE ×2 (13:38→17:27)
[2020-10-15] MEDS ORDERED: Iron Sucrose 20 MG/ML 5 ML VIAL IV PUSH SCH (14:00)
[2020-10-15] MEDS: Iron Sucrose 200 MG in NS 0.9% 100 ml IVPB SCH (14:14)
[2020-10-15 18:09] LABS: Troponin I 0.07 ng/mL (<0.03)
[2020-10-15 18:36] LABS: Urine Bacteria Absent (Absent); Urine Red Blood Cell Absent (Absent); Urine White Blood Cell Absent (Absent)
[2020-10-15 19:06] LABS: Urine Appearance Clear; Urine Bilirubin Negative (Negative); Urine Blood Negative (Negative); Urine Color Yellow; Urine Glucose 3+(>=500 mg/dL) (Negative); Urine Ketones Negative (Negative); Urine Nitrite Negative (Negative); Urine Protein Negative (Negative); Urine Specific Gravity 1.014 (1.002-1.030); Urine Urobilinogen Negative (Negative)
[2020-10-15] MEDS ORDERED: Aspirin EC 81 mg TAB.EC (enteric coated) PO SCH (21:00)
[2020-10-15 21:46] LABS: Calcium 8.9 mg/dL (8.6-10.3); EGFR African American 50.8 (>60); Magnesium 2.1 mg/dL (1.9-2.7); Potassium 4.7 mmol/L (3.5-5.0)
[2020-10-16 05:21] LABS: ABS Basophils 0.1 10^3/ul (0-0.2); ABS Eosinophils 0.2 10^3/ul (0-0.6); ABS Lymphocytes 1.3 10^3/ul (1.0-4.8); ABS Monocytes 0.6 10^3/ul (0-0.8); ABS Neutrophils 5.2 10^3/ul (1.5-7.7); Eosinophil % 2.2 %; Hematocrit 30 % (35-47); Lymphocyte % 17.9 %; Mean Corpuscular HGB Conc 33 g/dL (31-36); Mean Corpuscular Hemoglobin 27 pg (27-31); Mean Corpuscular Volume 81 fL (80-97); Mean Platelet Volume 7.9 fL (7.4-10.4); Nucleated Red Blood Cells % 0.1; Platelet Count 273 10^3/uL (150-450); Red Blood Count 3.72 10^6 /uL (3.70-4.87); Red Cell Distribution Width 17 % (10-15); White Blood Count 7.3 10^3/uL (3.5-10.8)
[2020-10-16 05:32] LABS: EGFR African American 57.7 (>60); EGFR Non-African American 47.7 (>60); Potassium 4.9 mmol/L (3.5-5.0)
[2020-10-16] MEDS: Calcium Carb (TUMS) 500 mg CHEW TAB PO SCH ×2 (08:38→22:08)
[2020-10-16] MEDS: Iron Sucrose 200 MG in NS 0.9% 100 ml IVPB SCH (08:38)
[2020-10-16] MEDS: Insulin ISOPH/REG 70/30 SUBCUT SCH ×2 (08:44→17:11)
[2020-10-16] MEDS: Enoxaparin 40 MG/0.4 ML SYR SUBCUT SCH (22:08)
[2020-10-17 06:27] LABS: ABS Basophils 0.1 10^3/ul (0-0.2); ABS Eosinophils 0.3 10^3/ul (0-0.6); ABS Lymphocytes 1.9 10^3/ul (1.0-4.8); ABS Monocytes 0.8 10^3/ul (0-0.8); ABS Neutrophils 5.4 10^3/ul (1.5-7.7); Hematocrit 31 % (35-47); Hemoglobin 10.2 g/dL (12.0-16.0); Lymphocyte % 21.9 %; Mean Corpuscular HGB Conc 32 g/dL (31-36); Mean Corpuscular Hemoglobin 27 pg (27-31); Mean Corpuscular Volume 82 fL (80-97); Mean Platelet Volume 7.4 fL (7.4-10.4); Nucleated Red Blood Cells % 0.1; Platelet Count 261 10^3/uL (150-450); Red Blood Count 3.82 10^6 /uL (3.70-4.87); Red Cell Distribution Width 17 % (10-15); White Blood Count 8.6 10^3/uL (3.5-10.8)
[2020-10-17 06:39] LABS: Calcium 9.4 mg/dL (8.6-10.3); EGFR African American 58.3 (>60); EGFR Non-African American 48.2 (>60); Potassium 4.6 mmol/L (3.5-5.0)
[2020-10-17] MEDS: Calcium Carb (TUMS) 500 mg CHEW TAB PO SCH (08:59)
[2020-10-17] MEDS: Insulin ISOPH/REG 70/30 SUBCUT SCH (08:59)
[2020-10-17 09:46] LABS: Magnesium 1.7 mg/dL (1.9-2.7)
[2020-10-17 12:07] VITALS: BP 152/70
== END 2020-10-17 13:01 | disposition home or self-care (01) | DRG 641 ==
LOC: MEDTELE 22:05 → ED 22:05 → MEDTELE 10-15 04:47
PROVIDERS: ADMIT Internal Medicine; ATTEND Hospitalist

== ENCOUNTER 2023-06-14 07:21 | Inpatient (IN) ==
[2023-06-14] MEDS: Ondansetron 4 mg VIAL 2 MG/ML 2 ml VIAL IV ONE (07:35)
[2023-06-14] MEDS: Morphine 4 MG/ML VIAL (1 ml) IV ONE (07:35)
[2023-06-14] MEDS: Lactated Ringers 1000 ml BAG 1,000 ML IV ONE ×3 (07:35→12:22)
[2023-06-14 07:51] LABS: ABS Basophils 0.1 10^3/uL (0.0-0.1); ABS Eosinophils 0.2 10^3/uL (0.0-0.5); ABS Lymphocytes 2.9 10^3/uL (1.0-4.8); ABS Monocytes 0.5 10^3/uL (0.0-0.9); ABS Neutrophils 7.9 10^3/uL (1.5-7.6); ABS Nucleated RBC 0.01 10^3/ul; Eosinophil % 2.1 %; Hematocrit 46.5 % (35-45); Hemoglobin 15.6 g/dL (11.5-14.3); Lymphocyte % 24.6 %; Mean Corpuscular Hemoglobin 29.6 pg (27-33); Mean Corpuscular Hgb Conc 33.5 g/dL (31-36); Mean Corpuscular Volume 88.4 fL (80-97); Mean Platelet Volume 8.4 fL (7.5-11.2); Nucleated Red Blood Cells % 0.1 %/100WBC (0.0-0.8); Platelet Count 229 10^3/uL (150-450); Red Blood Count 5.26 10^6/uL (3.63-4.92); Red Cell Distribution Width 16.6 % (12-17); White Blood Count 11.6 10^3/uL (3.8-11.8)
[2023-06-14 07:57] LABS: INR 0.99 (0.83-1.13)
[2023-06-14] MEDS: HYDROmorphone 0.5 MG/0.5 ML SYRINGE IV ONE (08:35)
[2023-06-14 08:38] LABS: Albumin 4.8 g/dL (3.2-5.2); Albumin/Globulin Ratio 1.3 (1-3); C Reactive Protein 2.06 mg/L (<8.01); Calcium 10.7 mg/dL (8.6-10.3); Creatinine, Serum 1.82 mg/dL (0.51-0.95); Globulin 3.7 g/dL (2-4); Potassium 3.8 mmol/L (3.5-5.0); Total Bilirubin 0.7 mg/dL (0.2-1.0); Total Protein 8.5 g/dL (6.4-8.9); eGFR CKD-EPI 28.5 (>60)
[2023-06-14 08:57] LABS: Magnesium 2.3 mg/dL (1.9-2.7)
[2023-06-14] MEDS: Iodixanol (CONTRAST) 320 MG/ML 100 ML SDV IV ONE (09:13)
[2023-06-14 09:54] LABS: High Sensitivity Troponin 1 Hr 174 pg/mL (<15)
[2023-06-14] MEDS ORDERED: Dextrose 50% Syringe 50 ml 25 GM/50 ML SYRINGE IV PUSH PRN ×2 (11:35→18:23)
[2023-06-14 11:48] LABS: Venous Bicarbonate HCO3 20.3 mmol/L (24-28)
[2023-06-14 12:12] LABS: Hematocrit 46.3 % (35-45); Hemoglobin 15.2 g/dL (11.5-14.3); Mean Corpuscular Hemoglobin 29.4 pg (27-33); Mean Corpuscular Hgb Conc 32.8 g/dL (31-36); Mean Corpuscular Volume 89.7 fL (80-97); Mean Platelet Volume 8.3 fL (7.5-11.2); Platelet Count 201 10^3/uL (150-450); Red Blood Count 5.17 10^6/uL (3.63-4.92); Red Cell Distribution Width 16.8 % (12-17); White Blood Count 13.7 10^3/uL (3.8-11.8)
[2023-06-14 12:14] LABS: ABS Basophils 0.1 10^3/uL (0.0-0.1); ABS Lymphocytes 1.3 10^3/uL (1.0-4.8); ABS Monocytes 1.1 10^3/uL (0.0-0.9); ABS Neutrophils 11.3 10^3/uL (1.5-7.6); ABS Nucleated RBC 0.01 10^3/ul; Lymphocyte % 9.1 %; Nucleated Red Blood Cells % 0.1 %/100WBC (0.0-0.8)
[2023-06-14] MEDS: ceFAZolin 1 GM in Dextrose 1 GM/50 ML BAG IVPB SCH ×2 (12:22→20:14)
[2023-06-14 12:29] LABS: Calcium 9.7 mg/dL (8.6-10.3); Creatinine, Serum 1.59 mg/dL (0.51-0.95); Potassium 4.8 mmol/L (3.5-5.0); eGFR CKD-EPI 33.5 (>60)
[2023-06-14] MEDS: metroNIDAZOLE IV 500 MG/100ML 500 MG/100 ML BAG IVPB SCH ×2 (13:36→20:41)
[2023-06-14] MEDS ORDERED: Bupivacaine 0.25% SDV 30 ML ONE (14:45)
[2023-06-14] MEDS ORDERED: Midazolam 2 mg/2 ml VIAL 1 mg/ml 2 ml VIAL (2 mg) ONE (14:56)
[2023-06-14] MEDS ORDERED: Rocuronium 50 mg VIAL 10 mg/ml 5 ml VIAL (50 mg) ONE (15:21)
[2023-06-14] MEDS ORDERED: fentaNYL 100 mcg/2 ml 50 MCG/ML VIAL ONE (15:22)
[2023-06-14] MEDS ORDERED: Calcium CHLORIDE 10% SYRINGE 1 GM/10 ML ONE (15:40)
[2023-06-14] MEDS ORDERED: Albumin Human 5% 25.0 GM/500 ML BTL IV ONE (16:05)
[2023-06-14] MEDS ORDERED: Scopolamine 1 mg/72hr PATCH ONE (16:41)
[2023-06-14] MEDS ORDERED: Labetalol IV 5 MG/ML 20 ml VIAL ONE (17:48)
[2023-06-14] MEDS: Labetalol IV 5 MG/ML 20 ml VIAL IV PUSH ONE (17:49)
[2023-06-14] MEDS: Lactated Ringers 1000 ml BAG 1,000 ML IV SCH (18:13)
[2023-06-14] MEDS: Morphine 2 MG/ML SYRINGE IV PRN (20:11)
[2023-06-14] MEDS: Enoxaparin 40 MG/0.4 ML SYR SUBCUT SCH (20:26)
[2023-06-14] MEDS: Ondansetron ODT 4 mg TAB 4 MG TAB SL PRN (20:27)
[2023-06-14] MEDS: Insulin GLARGINE 100 un/ml 10 ml VIAL SUBCUT SCH (21:45)
[2023-06-14] MEDS: Lactated Ringers 1000 ml BAG 500 ML IV ONE (23:30)
[2023-06-15] MEDS: Morphine 2 MG/ML SYRINGE IV PRN (00:18)
[2023-06-15 07:51] LABS: ABS Neutrophils 8.3 10^3/uL (1.5-7.6); Eosinophil % 0.1 %; Hematocrit 39.8 % (35-45); Hemoglobin 13.1 g/dL (11.5-14.3); Lymphocyte % 9.6 %; Mean Corpuscular Hemoglobin 29.5 pg (27-33); Mean Corpuscular Hgb Conc 32.9 g/dL (31-36); Mean Corpuscular Volume 89.6 fL (80-97); Mean Platelet Volume 8.5 fL (7.5-11.2); Platelet Count 171 10^3/uL (150-450); Red Blood Count 4.44 10^6/uL (3.63-4.92); Red Cell Distribution Width 16.8 % (12-17); White Blood Count 10.3 10^3/uL (3.8-11.8)
[2023-06-15 08:27] LABS: Calcium 9.2 mg/dL (8.6-10.3); Creatinine, Serum 1.44 mg/dL (0.51-0.95); Magnesium 1.8 mg/dL (1.9-2.7); Potassium 5.4 mmol/L (3.5-5.0); eGFR CKD-EPI 37.7 (>60)
[2023-06-15 10:33] LABS: TSH Ultra Thyroid Stim Horm 1.55 mcIU/mL (0.34-5.60)
[2023-06-15] MEDS: Magnesium Sulfate IV 1GM/100ML 1 GM/100 ML BAG IV ONE (15:20)
[2023-06-16 05:34] LABS: ABS Basophils 0.1 10^3/uL (0.0-0.1); ABS Eosinophils 0.1 10^3/uL (0.0-0.5); ABS Lymphocytes 1.2 10^3/uL (1.0-4.8); ABS Monocytes 0.9 10^3/uL (0.0-0.9); ABS Neutrophils 7.9 10^3/uL (1.5-7.6); ABS Nucleated RBC 0.01 10^3/ul; Hematocrit 34.6 % (35-45); Hemoglobin 11.6 g/dL (11.5-14.3); Lymphocyte % 12.3 %; Mean Corpuscular Hemoglobin 29.8 pg (27-33); Mean Corpuscular Hgb Conc 33.5 g/dL (31-36); Mean Corpuscular Volume 89.1 fL (80-97); Mean Platelet Volume 8.4 fL (7.5-11.2); Nucleated Red Blood Cells % 0.1 %/100WBC (0.0-0.8); Platelet Count 139 10^3/uL (150-450); Red Blood Count 3.88 10^6/uL (3.63-4.92); Red Cell Distribution Width 16.9 % (12-17); White Blood Count 10.1 10^3/uL (3.8-11.8)
[2023-06-16 06:04] LABS: Calcium 8.5 mg/dL (8.6-10.3); Creatinine, Serum 1.16 mg/dL (0.51-0.95); eGFR CKD-EPI 48.9 (>60)
[2023-06-17 07:17] LABS: ABS Basophils 0.1 10^3/uL (0.0-0.1); ABS Eosinophils 0.2 10^3/uL (0.0-0.5); ABS Lymphocytes 1.7 10^3/uL (1.0-4.8); ABS Monocytes 0.9 10^3/uL (0.0-0.9); ABS Neutrophils 8.2 10^3/uL (1.5-7.6); Eosinophil % 1.5 %; Hematocrit 35.6 % (35-45); Hemoglobin 11.8 g/dL (11.5-14.3); Lymphocyte % 15.2 %; Mean Corpuscular Hemoglobin 29.6 pg (27-33); Mean Corpuscular Hgb Conc 33.3 g/dL (31-36); Mean Platelet Volume 8.5 fL (7.5-11.2); Platelet Count 131 10^3/uL (150-450); Red Cell Distribution Width 16.4 % (12-17)
[2023-06-17 07:38] LABS: Calcium 8.4 mg/dL (8.6-10.3); Creatinine, Serum 1.13 mg/dL (0.51-0.95); eGFR CKD-EPI 50.4 (>60)
[2023-06-17] MEDS: Acetaminophen IV 1 GM/100ML 1,000 MG/100 ML BAG IV PRN (07:48)
[2023-06-17] MEDS: HYDROcodone/ACETAMIN 5/325 mg TAB PO PRN (20:09)
[2023-06-19] MEDS ORDERED: Senna TAB 8.6 mg TAB PO PRN (08:39)
[2023-06-19] MEDS: Polyethylene Glycol 3350 17 GM PACKET PO SCH (12:09)
[2023-06-19 14:15] VITALS: BP 116/51
== END 2023-06-19 17:05 | disposition home or self-care (01) | DRG 336 ==
LOC: ED 07:21 → EDHOLD 07:21 → SUATTDRO 09:58 → MEDTELE 13:20
PROVIDERS: ADMIT Student in an Organized Health Care Education/Training Program; ATTEND Internal Medicine